=== PATIENT | female | born 1935 | race Caucasian/White ===

== ENCOUNTER 2024-01-27 12:17 | Inpatient (IN) | payer OTHER, SELFPAY ==
[2024-01-27] VITALS (15 sets, daily range): BP systolic 110–185; BP diastolic 48–103; PULSE 82–107; BMI 20.6
--- NOTE | 2024-01-27 09:23 | ED.GENMED ---
History of Present Illness
General
Chief Complaint: Abnormal Lab Value
Source: patient and family (Daughters)
Exam Limitations: none
Time Seen by Provider: 01/27/24 08:55
Nursing documentation reviewed up to this point in time: agreed with
Travel History
Have you had any contact with someone who has COVID-19?: No
Do you have any symptoms of coronavirus? Fever > 100 degrees, chills, cough, shortness of breath, sore throat, loss of taste or smell, muscle aches, or headache?: No
History of Present Illness
History of Present Illness:
88-year-old female with a past medical history of atrial fibrillation on Eliquis, hypertension, pacemaker, SVT, prior GI bleed who presents to the emergency department with her daughters for evaluation of shortness of breath and dizziness�found to
have significant anemia on outpatient lab work. Patient says that she has been feeling very weak and short of breath increasingly over the past 6 to 8 months. She has been trying to get into see her primary doctor for this but was not able to get
in until recently and was sent for blood work which she had drawn yesterday as an outpatient. She was found to have a hemoglobin of 5.7 was referred to the emergency room today. She says she has also been having some dizziness for the same period
of time mostly with positional changes. She has not had any chest pain. She has not had any cough, fevers, chills, edema. She has not noticed any black or bloody stools. She is still taking Eliquis and compliant last dose was last night. She
does have a history of significant anemia in the past�was admitted in 2014 with profound anemia had upper and lower endoscopy which showed no clear bleeding source.
Past History
Past History
ED Past Medical History: Arrthythmia (Atrial fibrillation, SVT), HTN and Other (Anemia, )
ED Past Surgical History: Cardiac (Ablation X 2 , pacemaker), Gynecological (Hysterectomy), Orthopedic (Spinal fussion,) and Other (Hemorrhoidectomy)
Social History
Tobacco: Non-smoker
Alcohol: Occasional
Personal:
Living: alone
Review of Systems
Review of Systems
Constitutional: Reports fatigue; Denies fever or chills
EENT: Denies sore throat or runny nose
Respiratory: Reports trouble breathing; Denies cough
Cardiac: Denies chest pain, diaphoresis or palpitations
ABD/GI: Denies abdominal pain, nausea, vomiting, diarrhea, bloody stools or black stools
: Denies flank pain
Musculoskeletal: Denies neck pain or back pain
Neurological: Reports dizzy; Denies headache, weakness or numbness
Phy Exam
Physical Exam
Physical Exam:
General: Awake, alert, oriented x3; pale and weak.
Head: Normocephalic, atraumatic
Eyes: Pale conjunctiva, pupils equal round and reactive to light bilaterally
Throat: Airway intact, handling secretions
Neck: Trachea midline, supple without meningismus
Lungs: Clear to auscultation bilaterally, no wheezing, rales, rhonchi
Heart: Regular rate and rhythm, no murmurs, gallops, or rubs
Abd: Soft, non distended, nontender
Rectal: Patient unfortunately did not have any stool in the rectal vault for Hemoccult testing no gross blood on rectal either; she does have some external hemorrhoids
Neuro: Cranial nerves grossly intact, speech fluid
Skin: Pale
Extremities: Warm and well-perfused, no edema
Scores
Heart Failure Risk
Heart Failure Risk Score: Not Applicable
Heart Score for Chest Pain Patients
STEMI patient?: Not applicable
Withdrawal Assessment of Alcohol
Withdrawal Assessment Completed?: Not applicable
Course
Orders/Labs/Results
Orders:
Orders
01/27/24 09:34
Type+Screen Urgent
B12 [Vitamin B12] Urgent
Complete Blood Count/With Diff Urgent
Comprehensive Metabolic Panel Urgent
Ferritin Urgent
Iron Urgent
PTT Urgent
Prothrombin Time Urgent
Total Iron Binding Urgent
01/27/24 10:04
Blood Bank Products [* Blood Bank Products] Urgent
Blood Bank Products: *Packed RBC Leuko(PRBC's)
Quantity: 2
Transfuse Today: Yes
Reason: Anemia
Abnormal Lab Results
01/27/24
09:34
WBC 4.2 L 10^3/uL
(4.8-10.8)
RBC 2.92 L 10^6/uL
(4.20-5.40)
Hgb 5.6 L* g/dL
(12.0-16.0)
Hct 19.4 L* %
(37.0-47.0)
MCV 66.4 L fL
(81.0-99.0)
MCH 19.2 L pg
(27.0-31.0)
MCHC 28.9 L g/dL
(33.0-37.0)
RDW 20.4 H %
(11.5-14.5)
Absolute Monos (auto) 0.7 H 10^3/uL
(0.1-0.6)
Monocytes % 15.5 H %
(1.7-9.3)
Eosinophils % 6.7 H %
(0-6)
PT 20.3 H Sec
(11.4-14.6)
APTT 37.5 H Sec
(23.4-35.0)
01/27/24 09:34
Vital Signs
Initial and Last Documented VS:
Initial Vital Signs
Temp Pulse Resp BP Pulse Ox
36.8 C 73 18 121/48 93
01/27/24 08:23 01/27/24 08:23 01/27/24 08:23 01/27/24 08:23 01/27/24 08:23
Last Documented Vital Signs
Temp Pulse Resp BP Pulse Ox
36.8 C 70 23 115/60 93
01/27/24 08:23 01/27/24 10:00 01/27/24 10:00 01/27/24 10:00 01/27/24 08:23
MDM/Problems Addressed
Differential Diagnosis Includes:
Anemia�secondary to GI bleeding versus iron deficiency versus other nutritional deficiencies versus MDS/leukemia
MDM/Problems Addressed:
88-year-old female presents with progressive dyspnea and dizziness positional dizziness over the past 6 to 8 months found to have hemoglobin of 5.7 drawn on outpatient labs yesterday. Vital signs are all normal and in concert with her reported
history of symptoms over 6 to 8 months this suggests that this is a gradual drop in hemoglobin. She is on Eliquis last dose was last night. Her physical exam is as above�while she has no reported GI bleeding unfortunately there was no stool in
rectal vault to test for occult blood. Will plan to place an IV send labs including CBC and CMP, coags, type and screen, iron studies. Consented for blood transfusion; will plan for transfusion pending confirmation of anemia. Will plan likely for
admission for continued evaluation of source of her anemia and serial hemoglobins.
Labs reviewed. CBC confirms anemia with a hemoglobin of 5.6 today, hematocrit 19.4%; she has marginal leukopenia with a WBC of 4.2. Platelets normal. Order placed for 2 units of PRBCs. Considered reversal of anticoagulation but she has not had a
dose since last night, is hemodynamically stable and has had gradual progression of symptoms over a month suggesting that this is a gradual drop rather than an acute drop in hemoglobin. With vitals normal I do not think emergent reversal is
indicated instead we will hold anticoagulation for now. Case discussed with hospitalist for admission for continued evaluation and treatment.
Chronic conditions affecting care:
A-fib on Eliquis which complicates her acute anemia
*Pulse Oximetry
Patient hypoxic: no
*Critical Care Note
Total Time (30-74mins, 75-104mins- exclusive of procedures): Not Applicable
Data Reviewed
Source: patient and family (Daughters)
Patient Management
Discussion with other providers: Hospitalist (Discussed with hospitalist)
Escalation/DeEscalation of care consider admission/obs:
Admission indicated
ED Attending Note
-
Portions of this chart may have been created with voice recognition software.� Occasional wrong word or��sound alike� substitutions may have occurred due to the inherent limitations of voice recognition software.
Discharge Plan
Departure
Patient Disposition: Admit
Date of Disposition: 01/27/24
Time of Disposition: 10:18
Admit to doctor: Mike
Presentation/result/management discussed w/ accepting MD/DO: Hospitalist
Discharge Problem:
Symptomatic anemia
Prescriptions:
No Action
verapamil 120 MG tablet
240 mg PO NOON
sotalol 80 MG tablet
80 mg PO BID
lisinopril 10 MG tablet
20 mg PO DAILY
Eliquis 5 MG tablet
5 mg PO BID
Hold Instructions: Resume on 10/21/22. HOLD post procedure- OK to resume on 10/21 in PM
calcium carbonate-vitamin D3 [Calcium 500 + D (D3)] 500 mg-3.125 mcg (125 unit) Tablet
2 tab PO DAILY
acetaminophen [Tylenol Extra Strength] 500 mg Capsule
1,000 mg PO Q6H PRN (Reason: pain)
Referrals:
Jose Gomez PA-C [Family Provider] -
Interventions
Interventions:
*Risk Screen - Suicide Last Done: 01/27/24 09:26
*General Assessment Last Done: 01/27/24 09:25
*Neglect/Abuse Screening Last Done: 01/27/24 09:26
ED- Fall Risk Assessment Last Done: 01/27/24 09:27
*ED COVID-19 Vaccine History Last Done: 01/27/24 09:25
[2024-01-27 09:58] LABS: % Basophils 0.5 % (0-2); % Eosinophils 6.7 % (0-6); % Immature Granulocytes 0.5 % (0-0.5); % Lymphocytes 29.1 % (20.5-51.1); % Monocytes 15.5 % (1.7-9.3); % Neutrophils 47.7 % (42.2-75.2); Absolute Eosinophils 0.3 10^3/uL (0-0.7); Absolute Lymphocytes 1.2 10^3/uL (1.2-3.4); Absolute Monocytes 0.7 10^3/uL (0.1-0.6); Mean Corp Hgb Conc. 28.9 g/dL (33.0-37.0); Mean Corpuscular Hgb 19.2 pg (27.0-31.0); Mean Corpuscular Volume 66.4 fL (81.0-99.0); Mean Platelet Volume 9.6 fL (7.4-10.4); Nucleated Red Blood Cells % 0 %; Platelet Count 266 10^3/uL (130-400); Red Blood Cell Count 2.92 10^6/uL (4.20-5.40); Red Cell Dist. Width 20.4 % (11.5-14.5); White Blood Cell Count 4.2 10^3/uL (4.8-10.8)
[2024-01-27 10:04] LABS: Hematocrit 19.4 % (37.0-47.0); Hemoglobin 5.6 g/dL (12.0-16.0)
[2024-01-27 10:05] LABS: INR 1.75; PT 20.3 Sec (11.4-14.6)
[2024-01-27 10:06] LABS: APTT 37.5 Sec (23.4-35.0)
[2024-01-27 10:19] LABS: ALT (SGPT) 16 U/L (0-35); AST (SGOT) 24 U/L (14-36); Albumin 3.8 g/dl (3.5-5.0); Alkaline Phosphatase 60 U/L (38-126); Blood Urea Nitrogen 21 mg/dl (7-17); Calcium 9.2 mg/dl (8.4-10.2); Carbon Dioxide 21 mmol/L (22-30); Chloride 109 mmol/L (98-107); Estimated Creatinine Clearance 35 ml/min; Glucose 108 mg/dl (70-99); Iron 24 ug/dl (37-170); Potassium 4.1 mmol/L (3.5-5.1); Sodium 136 mmol/L (135-145); Total Bilirubin 0.5 mg/dl (0.2-1.3); Total Protein 6.5 g/dl (6.3-8.2); eGFR 54.53
[2024-01-27 10:29] LABS: Percent Saturation 5 % (20-50); Total Iron Binding Capacity 450 ug/dl (265-497)
[2024-01-27 10:37] LABS: Microcytosis FEW; Normal RBC Morphology No
[2024-01-27 10:39] LABS: Ovalocytes FEW; Target Cells FEW
[2024-01-27 10:40] LABS: Schistocytes RARE
[2024-01-27 10:43] LABS: Poikilocytosis Slight
[2024-01-27 10:47] LABS: Ferritin 8.2 ng/ml (11.1-264.0)
[2024-01-27 11:02] LABS: Vitamin B12 271 pg/ml (239-931)
--- NOTE | 2024-01-27 12:07 | HPS.HSE ---
Family Physician
-
Family Physician: Jose Gomez PA-C
Chief Complaint
-
Progressive weakness and shortness of breath
History of Present Illness
Patient sent in because of discovery of severe anemia as outpatient.
Patient with history of atrial fibrillation on Eliquis, hypertension, and prior GI bleed for which she had endoscopy /colonoscopy which she thinks 5 to 6 years ago was having increasing shortness of breath and dizziness. She was also feeling weak .
It has been going on for 6 to 8 months. She was trying to get to see PCP and that she did last week or requested blood test and that was drawn yesterday. Hemoglobin was found to be 5.7 and referred to the ER.
She denies noticing any black stools or blood in the stools. No abdominal pain. No nausea vomiting or dysphagia. She did notice weight loss ?quantity.
No chest pain or palpitations.
She is on Eliquis and took her dose last night.
She was admitted 2013 for significant anemia with hemoglobin 5.8. She had a EGD and colonoscopy done which showed no evidence of bleeding.
In 2013 she had rectal bleeding, had a hemorrhoidectomy at [facility].
Medical History
Past Medical History
Past Medical History: Reports Arrhythmia (afib), HTN and Hypercholesterolemia
Past Surgical History: Reports Cardiac (pacer)
Social History
Tobacco: Non-smoker
Alcohol: None
Drug: None
Family History
Family History: Not pertinent
Allergies / Home Medications
Allergies reflects when Allergies were last updated in [employer].
Home Medications with original date entered in [employer]
Allergy/Medication List:
Allergies
Allergy/AdvReac Type Severity Reaction Status Date / Time
NSAIDS (Non-Steroidal Allergy high bp Verified 04/10/23 06:15
Anti-Inflamma
oxycodone Allergy Vomiting Verified 04/10/23 06:15
rofecoxib Allergy high bld Verified 04/10/23 06:15
pressure
zolpidem tartrate Allergy hallucinati Verified 04/10/23 06:15
[From Ambien] ons
zolpidem tartrate Allergy hallucinati Uncoded 04/10/23 06:15
ons
Home Medications
sotalol 80 mg tablet 80 mg PO BID Arrhythmia 08/08/17
apixaban 5 mg tablet (Eliquis) 5 mg PO BID Blood clot prevention/tx 10/01/20
amoxicillin 500 mg capsule 500 mg PO TID 01/27/24
lisinopril 20 mg tablet 20 mg PO DAILY 01/27/24
verapamil 240 mg tablet,extended release 240 mg PO NOON 01/27/24
Review of Systems
-
A 12 point ROS was completed and negative except as noted: Yes
Physical Exam
Vital Signs
Vital Signs
Temp Pulse Resp BP Pulse Ox
98.5 F 70 25 128/65 96
01/27/24 11:56 01/27/24 11:56 01/27/24 11:56 01/27/24 11:56 01/27/24 11:56
Physical Exam
General: No Apparent Distress
HEENT: Moist mucous membranes
Respiratory: Clear
Cardiac: S1/S2 and Regular Rhythm
GI: Soft and No Hepatosplenomegaly
Musculoskeletal: No Edema
Neuro: AO x 3
Psych: Calm; No Confused or Agitated
Laboratory Results
-
01/27/24 09:34
01/27/24 09:34
Laboratory Results
PT 20.3 Sec (11.4-14.6) H 01/27/24 09:34
INR 1.75 01/27/24 09:34
APTT 37.5 Sec (23.4-35.0) H 01/27/24 09:34
Total Bilirubin 0.5 mg/dl (0.2-1.3) 01/27/24 09:34
AST 24 U/L (14-36) 01/27/24 09:34
ALT 16 U/L (0-35) 01/27/24 09:34
Alkaline Phosphatase 60 U/L (38-126) 01/27/24 09:34
Data Reviewed
-
Lab Data: Labs Reviewed by me
Impression/Plan
-
Severe symptomatic anemia with hemoglobin 5.6. No active bleeding. Rectal vault empty so no stools to check for heme testing. No GI symptoms per history. Admit to hospital for further evaluation. Transfuse PRBC 2 units as planned and follow H&H
closely.
Severe iron deficiency anemia-iron stores are pretty low. She is also has severe microcytosis. Patient is on Eliquis. Rule out GI bleed. Consult GI. Start on iron IV.
Atrial fibrillation-clinically in sinus rhythm. Check EKG. Hold Eliquis. Hemodynamically stable. Clinically no signs of heart failure. Continue with sotalol.
Hypertension-continue verapamil and lisinopril for now.
CODE STATUS-DNR/DNI per patient wishes. She apparently has a living will as well stating DNR. Both the daughters at bedside who confirms her wishes.
--- NOTE | 2024-01-27 14:01 | CON.GI ---
Consultation
-
Date/Time Consultation Requested: 01/27/2024
Date/Time Consultation Performed: 01/27/2024
Performing Provider: Thomas Arredondo
Reason for Consultation: anemia
Medical History
Chief Complaint / HPI
Chief Complaint: anemia
History of Present Illness:
The patient is a 8-year-old female with history of A-fib on Eliquis, HTN, and hypercholesterolemia who presents with symptomatic anemia. She had OP blood work which showed Hgb of 5.7 and was directed to ER. She is having symptoms of anemia with
fatigue and exertional dyspnea. She denies overt signs of GI bleeding such as melena, rectal bleeding, or vomiting. She denies NSAID use and denies abdominal pain. Of note she had similar presentation in 2013 when she presented with Hgb of 5.8,
and she had unremarkable EGD/colonoscopy at that time.
Past Medical History
Past Medical History: Arrhythmias, HTN and Hypercholesterolemia
Past Surgical History: Other
Social History
Tobacco: Non-Smoker
Alcohol: None
Family History
Family History: Reviewed & Not Pertinent
Allergies / Home Medications
Allergy/AdvReac Type Severity Reaction Status Date / Time
NSAIDS (Non-Steroidal Allergy high bp Verified 04/10/23 06:15
Anti-Inflamma
oxycodone Allergy Vomiting Verified 04/10/23 06:15
rofecoxib Allergy high bld Verified 04/10/23 06:15
pressure
zolpidem tartrate Allergy hallucinati Verified 04/10/23 06:15
[From Ambien] ons
zolpidem tartrate Allergy hallucinati Uncoded 04/10/23 06:15
ons
Medication Instructions Recorded
sotalol 80 mg tablet 80 mg PO BID Arrhythmia 08/08/17
apixaban 5 mg tablet (Eliquis) 5 mg PO BID Blood clot 10/01/20
prevention/tx
amoxicillin 500 mg capsule 500 mg PO TID 01/27/24
lisinopril 20 mg tablet 20 mg PO DAILY 01/27/24
verapamil 240 mg tablet,extended 240 mg PO NOON 01/27/24
release
Review of Systems
Vital Signs
Temp Pulse Resp BP Pulse Ox
98.7 F 72 22 118/82 94
01/27/24 12:13 01/27/24 13:45 01/27/24 13:45 01/27/24 13:00 01/27/24 13:45
Physical Exam
Exam
General: Well Developed and Well Nourished
HEENT: Normocephalic
Respiratory: Clear
Cardiac: S1/S2
GI: Soft, Non Tender and Non Distended
Results
WBC 4.2 10^3/uL (4.8-10.8) L 01/27/24 09:34
Hgb 5.6 g/dL (12.0-16.0) L* 01/27/24 09:34
Hct 19.4 % (37.0-47.0) L* 01/27/24 09:34
MCV 66.4 fL (81.0-99.0) L 01/27/24 09:34
Plt Count 266 10^3/uL (130-400) 01/27/24 09:34
Absolute Neuts (auto) 2.0 10^3/uL (1.4-6.5) 01/27/24 09:34
PT 20.3 Sec (11.4-14.6) H 01/27/24 09:34
INR 1.75 01/27/24 09:34
APTT 37.5 Sec (23.4-35.0) H 01/27/24 09:34
Sodium 136 mmol/L (135-145) 01/27/24 09:34
Potassium 4.1 mmol/L (3.5-5.1) 01/27/24 09:34
Chloride 109 mmol/L (98-107) H 01/27/24 09:34
Carbon Dioxide 21 mmol/L (22-30) L 01/27/24:34
BUN 21 mg/dl (7-17) H 01/27/24:34
Creatinine 1.0 mg/dL (0.6-1.0) 01/27/24:34
Calcium 9.2 mg/dl (8.4-10.2) 01/27/24:34
Total Bilirubin 0.5 mg/dl (0.2-1.3) 01/27/24:34
AST 24 U/L (14-36) 01/27/24:34
ALT 16 U/L (0-35) 01/27/24:34
Alkaline Phosphatase 60 U/L (38-126) 01/27/24:34
Diagnostic Image Results:
Prior GI Procedures:
EGD:
Colonoscopy:
Assessment / Plan
-
Patient is a 88-year-old female with history of A-fib on Eliquis, HTN, hypercholesterolemia who presents with symptomatic anemia without signs of overt GI bleeding.
Impression / Rec:
1. Anemia - Patient presents with symptomatic anemia with Hgb of 5.6. She denies overt signs of GI bleeding such as melena, rectal bleeding, vomiting, coffee-ground emesis. She denies NSAID use and denies abdominal pain. She had similar
presentation in 2013 when she was admitted with Hgb of 5.8. She underwent EGD/colonoscopy which did not reveal any source of blood loss. She was recommended for capsule endoscopy at [place] due to her pacemaker but this was deferred as her Hgb
remained stable after holding Eliquis. KOBE was done in ER, however Hemoccult could not be performed as there was minimal amount of stool present. Discussed with patient family for possible repeat endo eval, patient did not want to have colonoscopy
and was hesitant for any endo evaluation. Will order FOBT to see whether she has any evidence of GI blood loss. Given her previous negative Endo eval with same presentation, a repeat and evaluation may also be nondiagnostic at this was discussed
with the patient. Will readdress possible other evaluation pending stool test results. Regular diet for now.
Total Time Spent with Patient (in minutes): 55
-
-
Thank you for consultation and allowing me to participate in the patient's care. Please call the hydroelectric station operator GI physician during the after hours with any questions or concerns.
[2024-01-27] MEDS: CALAN EXTENDED RELEASE 240 MG PO (16:40)
--- NOTE | 2024-01-27 19:29 | PTCARENOTE ---
Rec'd pt from the ED, oriented to room and unit, 2nd unit of blood running. Pt call gastelum is within reach, pt instructed to ring for assistance, verbalized understanding, will cont to monitor.
[2024-01-27] MEDS: FERRLECIT 110 MG IV (20:29)
[2024-01-27] MEDS: FLUSH (NSS) 2 FLUSH IV (20:31)
[2024-01-27] MEDS: BETAPACE 80 MG PO (20:31)
[2024-01-27 23:34] LABS: Hematocrit 26.4 % (37.0-47.0)
[2024-01-28] VITALS (8 sets, daily range): BP systolic 136–173; BP diastolic 65–81; PULSE 70–78; O2SAT 96
[2024-01-28 00:08] LABS: Hemoglobin 8.3 g/dL (12.0-16.0)
--- NOTE | 2024-01-28 05:52 | PTCARENOTE ---
Pt. became forgetful and wandered over to [address] to go to the bathroom, bed alarm placed on bed.
[2024-01-28 07:45] LABS: Hematocrit 28.8 % (37.0-47.0); Hemoglobin 8.9 g/dL (12.0-16.0); Mean Corp Hgb Conc. 30.9 g/dL (33.0-37.0); Mean Corpuscular Hgb 22.4 pg (27.0-31.0); Mean Corpuscular Volume 72.5 fL (81.0-99.0); Mean Platelet Volume 9.4 fL (7.4-10.4); Platelet Count 242 10^3/uL (130-400); Red Blood Cell Count 3.97 10^6/uL (4.20-5.40); Red Cell Dist. Width 22.1 % (11.5-14.5)
[2024-01-28 08:01] LABS: Blood Urea Nitrogen 20 mg/dl (7-17); Calcium 9.3 mg/dl (8.4-10.2); Carbon Dioxide 23 mmol/L (22-30); Chloride 111 mmol/L (98-107); Estimated Creatinine Clearance 38 ml/min; Glucose 100 mg/dl (70-99); Potassium 3.9 mmol/L (3.5-5.1); Sodium 138 mmol/L (135-145); eGFR > 60.00
[2024-01-28] MEDS: BETAPACE 80 MG PO ×2 (09:14→19:52)
[2024-01-28] MEDS: ZESTRIL 20 MG PO (09:14)
--- NOTE | 2024-01-28 10:16 | W.PN.HOSP.TC ---
Today's Communication/Plan
-
Heme test stools
Hemolysis panel
PT eval
HH in am
DC planning
Assessment / Plan
Assessment / Plan
Severe symptomatic anemia with hemoglobin 5.6.� No active bleeding.� Rectal vault empty so no stools to check for heme testing.� No GI symptoms per history.�Transfused PRBC 2 units with improved HH. Check hemolysis panel.
Severe iron deficiency anemia-iron stores are pretty low.� She is also has severe microcytosis.� Patient is on Eliquis.� Rule out GI bleed.� Started on iron IV. GI input noted-patient with no active GI bleed and patient is also not inclining
towards endoscopy eval. If heme test stools are negative plan to follow as outpatient.
Atrial fibrillation-clinically in sinus rhythm. Hold Eliquis -resume when active GI bleeding ruled out.� Hemodynamically stable.� Clinically no signs of heart failure.� Continue with sotalol.
Hypertension-continue verapamil and lisinopril for now.
CODE STATUS-DNR/DNI per patient wishes.�
Anticipated Discharge: Within 24 hours
Subjective/Interval History
-
Date of Service: January 28, 2024
Denies shortness of breath at today. No chest pain.
No dizziness.
Complains of insomnia both here and at home.
Objective Data
-
Labs:
Laboratory Results
01/27/24 01/28/24 01/28/24
23:12 07:32 07:38
WBC 6.0
Hgb 8.3 L D 8.9 L Cancelled
Hct 26.4 L 28.8 L Cancelled
Plt Count 242
Sodium 138
Potassium 3.9
Chloride 111 H
Carbon Dioxide 23
BUN 20 H
Creatinine 0.9
Glucose 100 H
Calcium 9.3
Vital Signs:
Vital Signs
Temp Pulse Resp BP Pulse Ox
97.9 F 71 16 158/70 94
01/28/24 07:13 01/28/24 07:13 01/28/24 07:13 01/28/24 09:14 01/28/24 07:38
I&O
01/27/24 01/28/24 01/29/24
05:59 06:59 06:59
Intake Total
Balance
Review of Systems
-
Constitutional: Denies Fever
EENT: Denies Sore Throat
Respiratory: Denies Cough
Abdomen/GI: Denies Abdominal Pain, Nausea, Vomiting or Diarrhea
Neuro: Denies Dizzy
Physical Exam
-
General: No Apparent Distress
HEENT: Moist Mucous Membranes
Respiratory: Clear to Auscultation
Cardiac: Regular Rhythm and S1/S2
GI: Soft and Nontender
Neuro: AO x 3
Data Reviewed
-
Labs: Labs Reviewed by me
[2024-01-28 10:38] LABS: Reticulocyte Count 1.9 % (0.4-2.8)
[2024-01-28 10:49] LABS: LDH 241 U/L (120-246)
[2024-01-28] MEDS: FERRLECIT 110 MG IV (12:33)
[2024-01-28] MEDS: CALAN EXTENDED RELEASE 240 MG PO (12:33)
--- NOTE | 2024-01-28 13:35 | W.PN.GI.CBS2 ---
Today's Communication / Plan
-
f/u with FOBT
Assessment / Plan
-
Patient is a 88-year-old female with history of A-fib on Eliquis, HTN, hypercholesterolemia who presents with symptomatic anemia without signs of overt GI bleeding. Patient presents with symptomatic anemia with Hgb of 5.6. She denies overt signs
of GI bleeding such as melena, rectal bleeding, vomiting, coffee-ground emesis. She denies NSAID use and denies abdominal pain. She had similar presentation in 2013 when she was admitted with Hgb of 5.8. She underwent EGD/colonoscopy which did
not reveal any source of blood loss. She was recommended for capsule endoscopy at [place] due to her pacemaker but this was deferred as her Hgb remained stable after holding Eliquis. KOBE was done in ER, however Hemoccult could not be performed
as there was minimal amount of stool present. Discussed with patient family for possible repeat endo eval, patient did not want to have colonoscopy and was hesitant for any endo evaluation. Will order FOBT to see whether she has any evidence of GI
blood loss. Given her previous negative Endo eval with same presentation, a repeat and evaluation may also be nondiagnostic and this was discussed with the patient.
Hgb up to 8.9 after 2 units of pRBC, appropriate response. Pt reports she had BM this am and was sent for testing. Will follow FOBT to determine next steps as she remains hesitant about endoscopic evaluations.
Total Time Spent with Patient (in minutes): 35
Subjective
Subjective
Date of Service: January 28, 2024
No events.
Objective
Data Reviewed
Laboratory Data:
Laboratory Results
01/28/24 07:38
01/28/24 07:32
Laboratory Results
PT 20.3 Sec (11.4-14.6) H 01/27/24 09:34
INR 1.75 01/27/24 09:34
APTT 37.5 Sec (23.4-35.0) H 01/27/24 09:34
Total Bilirubin 0.5 mg/dl (0.2-1.3) 01/27/24 09:34
AST 24 U/L (14-36) 01/27/24 09:34
ALT 16 U/L (0-35) 01/27/24 09:34
Alkaline Phosphatase 60 U/L (38-126) 01/27/24 09:34
Vital Signs and I&O:
Vital Signs
Temp Pulse Resp BP Pulse Ox
97.8 F 74 18 173/81 97
01/28/24 11:33 01/28/24 11:33 01/28/24 11:33 01/28/24 12:33 01/28/24 11:33
I&O
01/27/24 01/28/24 01/29/24
05:59 06:59 06:59
Intake Total
Balance
--- NOTE | 2024-01-28 14:50 | CM ---
IA completed with pt at bedside.
Pt is an 88yr old female admitted with symptomatic anemia.
At baseline, pt lives alone in an [place] apt at [facility]. Per pt, she has been there just under a year.
Pt has no DME. Pt has used [facility] in the past, but has never been to SNF.
Pt uses [facility] at [facility] and PCP is Jose Gomez
PLAN; dc with no needs anticipated
[2024-01-29 03:30] VITALS: BP 142/87
--- NOTE | 2024-01-29 03:45 | PTCARENOTE ---
Patient placed on 2 L O2 via NC as she was feeling short of Breath . Pulse ox on RA 88%.
--- NOTE | 2024-01-29 03:48 | PTCARENOTE ---
spoke with Tad on the phone gave a small reports to the [facility] , they are in the process of putting in for a bed for this patient. , Patient is to transfer to [place] once a bed is available and the paperwork is completed.
[2024-01-29 06:00] VITALS: BMI 18.6
[2024-01-29 07:05] VITALS: BP 164/81
[2024-01-29 08:24] LABS: Hematocrit 29.3 % (37.0-47.0); Hemoglobin 8.9 g/dL (12.0-16.0); Mean Corp Hgb Conc. 30.4 g/dL (33.0-37.0); Mean Corpuscular Hgb 21.9 pg (27.0-31.0); Mean Platelet Volume 9.5 fL (7.4-10.4); Platelet Count 222 10^3/uL (130-400); Red Blood Cell Count 4.07 10^6/uL (4.20-5.40); Red Cell Dist. Width 22.8 % (11.5-14.5); White Blood Cell Count 5.9 10^3/uL (4.8-10.8)
--- NOTE | 2024-01-29 10:39 | W.PN.GI.CBS2 ---
Addendum entered and electronically signed by Thomas Arredondo MD 01/29/24 18:25:
I saw and examined the patient.
The PA's note was reviewed and I agree with the note.
Comment:
Pt wishes to proceed with endo eval, will plan for EGD/colonoscopy tomorrow.
Addendum entered and electronically signed by SAUL Bone 01/29/24 13:34:
daughter spoke with patient and family would like to proceed with GI work up
Original Note:
Today's Communication / Plan
-
etiology of recurrent anemia unclear
current rectal heme neg but significant Iron deficiency
pt very hesitant to make decision on scopes-- I spoke with Jennifer daughter who will further review with family but discussed options of follow hbg and hold scopes vs proceed with EGD/colon if neg then capsule
change in clears if decides to proceed
Eliquis hold
hbg improved to 8.9 cont to trend
cont IV iron
all questions answered
Assessment / Plan
-
Patient is a 88-year-old female with history of A-fib on Eliquis, HTN, hypercholesterolemia who presents with symptomatic anemia without signs of overt GI bleeding. Patient presents with symptomatic anemia with Hgb of 5.6. She denies overt signs
of GI bleeding such as melena, rectal bleeding, vomiting, coffee-ground emesis. She denies NSAID use and denies abdominal pain. She had similar presentation in 2013 when she was admitted with Hgb of 5.8. She underwent EGD/colonoscopy which did
not reveal any source of blood loss. She was recommended for capsule endoscopy at [place] due to her pacemaker but this was deferred as her Hgb remained stable after holding Eliquis. inital rectal with no stool.
-heme neg iron deficiency microcytic anemia
-afib on Eliquis
-HTN
-hypercholesterolemia
PLAN:
etiology of recurrent anemia unclear
current rectal heme neg but significant Iron deficiency
pt very hesitant to make decision on scopes-- I spoke with Jennifer daughter who will further review with family but discussed options of follow hbg and hold scopes vs proceed with EGD/colon if neg then capsule
change in clears if decides to proceed
Eliquis hold
hbg improved to 8.9 cont to trend
cont IV iron
all questions answered
Subjective
Subjective
Date of Service: January 29, 2024
on regular diet, several stools but unable to get sample
Objective
Data Reviewed
Laboratory Data:
Laboratory Results
01/29/24 08:01
01/28/24 07:32
Laboratory Results
PT 20.3 Sec (11.4-14.6) H 01/27/24 09:34
INR 1.75 01/27/24 09:34
APTT 37.5 Sec (23.4-35.0) H 01/27/24 09:34
Total Bilirubin 0.5 mg/dl (0.2-1.3) 01/27/24 09:34
AST 24 U/L (14-36) 01/27/24 09:34
ALT 16 U/L (0-35) 01/27/24 09:34
Alkaline Phosphatase 60 U/L (38-126) 01/27/24 09:34
Vital Signs and I&O:
Vital Signs
Temp Pulse Resp BP Pulse Ox
97.6 F 72 16 164/81 91
01/29/24 07:05 01/29/24 07:05 01/29/24 07:05 01/29/24 07:05 01/29/24 07:05
I&O
01/28/24 01/29/24 01/30/24
06:59 06:59 06:59
Intake Total 940 / 940
Output Total 200 / 200
Balance 740 / 740
Physical Exam
Physical Exam
HEENT: Anicteric and Moist mucous membranes
Cardiology: Normal Sinus Rhythm
Pulmonary: Clear
GI: Soft and Non Distended
Rectal: Brown and Hem Negative
Extremities: Edema
Neuro: Other (forgetful)
[2024-01-29] MEDS: CALAN EXTENDED RELEASE 240 MG PO (11:26)
[2024-01-29] MEDS: ZESTRIL 20 MG PO (11:28)
[2024-01-29] MEDS: BETAPACE 80 MG PO ×2 (11:32→21:30)
--- NOTE | 2024-01-29 11:48 | W.PN.HOSP.TC ---
Addendum entered and electronically signed by Emma Villatoro MD 01/29/24 16:13:
under weight
Original Note:
Today's Communication/Plan
-
EGD and colonoscopy planned for tomorrow
Assessment / Plan
Assessment / Plan
CVS: S1-S2 normal
Chest: CTA B/L
Abdomen: Soft, NT / Bowel sounds present
Extremities: No edema, normal pulses
BLOCK MECHANIC: Non focal exam
#Severe symptomatic anemia with hemoglobin 5.6.� No active bleeding.�
Rectal vault empty so no stools to check for heme testing.� No GI symptoms per history.�
Transfused PRBC 2 units with improved HH.
H/O Hemorroids
Plan for endoscopy and colonoscopy tomorrow per patient
#Severe iron deficiency anemia-iron stores are pretty low.� She is also has severe microcytosis.�
Patient is on Eliquis.� Rule out GI bleed.�
Started on iron IV.
#Paroxysmal Atrial fibrillation-clinically in sinus rhythm.
H/O Ablations in the past
Hold Eliquis -resume when active GI bleeding ruled out.�
Clinically no signs of heart failure.� Continue with sotalol.
#Pacemaker
#H/O SVT-Verapamil
#Hypertension-continue verapamil and lisinopril for now.
#H/O Spinal Fusion/Chronic back pain/Sciatica/Arthritis
#CODE STATUS-DNR/DNI per patient wishes.�
Anticipated Discharge: Within 24 hours
Subjective/Interval History
-
Date of Service: January 29, 2024
Objective Data
-
Labs:
Laboratory Results
01/29/24
08:01
WBC 5.9
Hgb 8.9 L
Hct 29.3 L
Plt Count 222
Vital Signs:
Vital Signs
Temp Pulse Resp BP Pulse Ox
97.6 F 72 16 164/81 91
01/29/24 07:05 01/29/24 07:05 01/29/24 07:05 01/29/24 07:05 01/29/24 07:05
I&O
01/28/24 01/29/24 01/30/24
06:59 06:59 06:59
Intake Total 940 / 940
Output Total 200 / 200
Balance 740 / 740
[2024-01-29 13:14] VITALS: BP 155/74; BP 156/77; BP 157/76; PULSE 72; PULSE 73
[2024-01-29] MEDS: FERRLECIT 110 MG IV (14:37)
[2024-01-29] MEDS: DULCOLAX 10 MG PO (14:41)
[2024-01-29] MEDS: FLUSH (NSS) 1 FLUSH IV (14:42)
[2024-01-29] MEDS: VITAMIN B-12 PO (14:42)
--- NOTE | 2024-01-29 14:46 | PN.CDI ---
CDI
- -
CDI:
Physician Documentation Request
Admit Date: 01/27/24 12:17
Dear Doctor Shauna,
Please review the following and provide your response in the progress notes.
Clinical Indicators:
Height: 5'5
Weight: 112lbs
BMI: 18.6
Other Clinical Notes: Tip Cementer 'underweight'
If possible, please provide an associated diagnosis related to the abnormal BMI, such as:
Underweight
Cachectic
BMI is not significant
Other
Use of terms such as suspected, likely, concern for, or probable (associated with a specific diagnosis that is being evaluated, monitored, or treated as if it exists) are acceptable and can be coded in the inpatient setting, when documented at the
time of discharge.
Thank you,
Ritika Negrete RN
CDI Specialist
Please use your independent medical judgment in providing your response.
[2024-01-29 15:05] VITALS: BP 165/71
[2024-01-29] MEDS: NULYTELY SOLUTION 4 LITERS PO (18:30)
[2024-01-29] MEDS: VITAMIN B-12 1000 MCG PO (18:30)
[2024-01-29 19:18] VITALS: BP 147/72
[2024-01-29 22:24] LABS: Haptoglobin 81 mg/dL (30-200)
[2024-01-29 23:25] VITALS: BP 162/86
[2024-01-30] VITALS (10 sets, daily range): BP systolic 12–174; BP diastolic 56–93
--- NOTE | 2024-01-30 04:10 | PTCARENOTE ---
pt found walking in the hallway. States she was looking for a different bathroom. Assisted pt back to her room. She is oriented but hasn't slept as she has been doing her colonoscopy. She is tearful and states she should never have agreed to have
this done. Emotional support provided. Call [facility] is in reach and pt was instructed to call if she needs assistance.
[2024-01-30 07:40] LABS: Hematocrit 29.6 % (37.0-47.0); Mean Corp Hgb Conc. 30.4 g/dL (33.0-37.0); Mean Corpuscular Hgb 22.4 pg (27.0-31.0); Mean Corpuscular Volume 73.6 fL (81.0-99.0); Mean Platelet Volume 10.1 fL (7.4-10.4); Platelet Count 246 10^3/uL (130-400); Red Blood Cell Count 4.02 10^6/uL (4.20-5.40); Red Cell Dist. Width 23.5 % (11.5-14.5); White Blood Cell Count 6.5 10^3/uL (4.8-10.8)
[2024-01-30 07:44] LABS: INR 1.26; PT 15.6 Sec (11.4-14.6)
[2024-01-30 08:02] LABS: Blood Urea Nitrogen 18 mg/dl (7-17); Calcium 9.7 mg/dl (8.4-10.2); Carbon Dioxide 23 mmol/L (22-30); Chloride 106 mmol/L (98-107); Estimated Creatinine Clearance 40 ml/min; Glucose 89 mg/dl (70-99); Potassium 3.8 mmol/L (3.5-5.1); Sodium 139 mmol/L (135-145); eGFR > 60.00
[2024-01-30] MEDS: BETAPACE 80 MG PO ×2 (10:07→21:05)
[2024-01-30] MEDS: ZESTRIL 20 MG PO (10:07)
[2024-01-30] MEDS: FERRLECIT 110 MG IV (14:02)
[2024-01-30] MEDS: CALAN EXTENDED RELEASE 240 MG PO (14:02)
[2024-01-30] MEDS: VITAMIN B-12 1000 MCG PO (14:02)
--- NOTE | 2024-01-30 16:09 | W.PN.HOSP.TC ---
Today's Communication/Plan
-
Rpt Hb in am
If stable start Eliquis
Possible discharge in am
Assessment / Plan
Assessment / Plan
CVS: S1-S2 normal
Chest: CTA B/L
Abdomen: Soft, NT / Bowel sounds present
Extremities: No edema, normal pulses
INTERN BRAND: Non focal exam
#Severe symptomatic anemia with hemoglobin 5.6.� No active bleeding.�
Rectal vault empty so no stools to check for heme testing.� No GI symptoms per history.�
Transfused PRBC 2 units with improved HH.
EGD 01/30/[id number] healed ulcer in the antrum biopsied, 3 cm hiatal hernia
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
Restart Eliquis tomorrow per discussion with GI
Hemoglobin to be repeated in the morning
#Severe iron deficiency anemia-iron stores are pretty low.� She is also has severe microcytosis.�
Started on iron IV.
Replace low normal B12
#Paroxysmal Atrial fibrillation-clinically in sinus rhythm.
H/O Ablations in the past
Hold Eliquis -resume tomorrow per GI
Clinically no signs of heart failure.� Continue with sotalol.
#Pacemaker
#H/O SVT-Verapamil
#Hypertension-continue verapamil and lisinopril for now.
#H/O Spinal Fusion/Chronic back pain/Sciatica/Arthritis
#CODE STATUS-DNR/DNI per patient wishes.�
Spoke to daughter Jennifer and updated.
Anticipated Discharge: Within 24 hours
Subjective/Interval History
-
Date of Service: January 30, 2024
Objective Data
-
Labs:
Laboratory Results
01/30/24
06:47
WBC 6.5
Hgb 9.0 L
Hct 29.6 L
Plt Count 246
PT 15.6 H
INR 1.26
Sodium 139
Potassium 3.8
Chloride 106
Carbon Dioxide 23
BUN 18 H
Creatinine 0.8
Glucose 89
Calcium 9.7
Vital Signs:
Vital Signs
Temp Pulse Resp BP Pulse Ox
97.5 F 73 16 160/78 97
01/30/24 15:00 01/30/24 15:00 01/30/24 15:00 01/30/24 15:00 01/30/24 15:00
I&O
01/29/24 01/30/24 01/31/24
06:59 06:59 06:59
Intake Total 940 / 940 710 / 710
Output Total 200 / 200 250 / 250
Balance 740 / 740 460 / 460
[2024-01-31 03:13] VITALS: BP 120/68
[2024-01-31 07:00] VITALS: BP 163/67
[2024-01-31] MEDS: ZESTRIL 20 MG PO (08:05)
[2024-01-31] MEDS: BETAPACE 80 MG PO (08:05)
[2024-01-31] MEDS: VITAMIN B-12 1000 MCG PO (08:05)
[2024-01-31 08:18] LABS: Hematocrit 29.8 % (37.0-47.0); Hemoglobin 8.8 g/dL (12.0-16.0); Mean Corp Hgb Conc. 29.5 g/dL (33.0-37.0); Mean Corpuscular Hgb 22.2 pg (27.0-31.0); Mean Corpuscular Volume 75.3 fL (81.0-99.0); Mean Platelet Volume 9.7 fL (7.4-10.4); Platelet Count 224 10^3/uL (130-400); Red Blood Cell Count 3.96 10^6/uL (4.20-5.40); Red Cell Dist. Width 24.5 % (11.5-14.5); White Blood Cell Count 5.7 10^3/uL (4.8-10.8)
--- NOTE | 2024-01-31 11:08 | W.PN.GI.CBS2 ---
Addendum entered and electronically signed by Idania Gasca DO 01/31/24 16:48:
Patient seen and examined independently of ASSISTANT PROFESSOR OF CHEMISTRY. I agree with her note with my additions below
On repeat hemoglobin has been stable with no overt bleeding. Restart Eliquis, if no overt bleeding okay for discharge.
Her endoscopy was unrevealing and her colonoscopy revealed angioectasias in the cecum and proximal ascending colon treated with APC and clips were placed.
Patient should have a repeat CBC in 1 week and return if has any further rectal bleeding. Can follow-up with PCP
Original Note:
Today's Communication / Plan
-
Repeat H&H. Diet as tolerated. If stable likely okay from GI standpoint for discharge with repeat CBC in 1 week. Resume Eliquis if stable hemoglobin. Can follow-up outpatient in 4 to 6 weeks. No further GI recommendations, will sign off.
Please call back with questions or concerns.
Assessment / Plan
-
The patient is a 88-year-old female with history of A-fib on Eliquis, HTN, hypercholesterolemia who presents with symptomatic anemia without signs of overt GI bleeding. Patient presents with symptomatic anemia with Hgb of 5.6. She denies overt
signs of GI bleeding such as melena, rectal bleeding, vomiting, coffee-ground emesis. She denies NSAID use and denies abdominal pain. She had similar presentation in 2013 when she was admitted with Hgb of 5.8. She underwent EGD/colonoscopy which
did not reveal any source of blood loss. She was recommended for capsule endoscopy at [place] due to her pacemaker but this was deferred as her Hgb remained stable after holding Eliquis. initial rectal with no stool.
Problem list:
-heme neg iron deficiency microcytic anemia
-afib on Eliquis
-HTN
-hypercholesterolemia
01/29/2024 colonoscopy: Hemorrhoids found on perianal exam. Erythematous mucosa in the rectum. Diverticulosis in the sigmoid colon. 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
Treated with argon plasma coagulation (APC). 3 Clips were placed on one angioectasia for marking, then for hemostasis. Clip zinc skimmer: [employer]. No specimens collected.
01/29/2024 EGD: No significant findings, however, a scar - possibly a healed ulcer in the antrum. Biopsied. 3 cm hiatal hernia. No gross lesions in the entire esophagus. Scar in the gastric antrum. Biopsied Normal examined duodenum.
Recommendations:
-Etiology of recurrent anemia likely secondary to colonic angioectasias which were seen on colonoscopy which were treated with APC and clipping for hemostasis.
-Hemoglobin is stable. Would repeat early this afternoon and if remains stable without signs of bleeding can resume Eliquis
-Diet as tolerated
-Repeat CBC in 1 week
-If stable today likely can be discharged from GI standpoint
-IV iron as ordered
-Can follow-up as outpatient in 4 to 6 weeks. If recurrent significant anemia or bleeding will need to review ongoing use of Eliquis with her grab setter.
Subjective
Subjective
Date of Service: January 31, 2024
The patient was seen and examined at the bedside. Her hemoglobin this morning is 8.8 which is stable. She has had no signs of bleeding. She is tolerating her diet.
Objective
Data Reviewed
Laboratory Data:
Laboratory Results
01/31/24 07:52
01/30/24 06:47
Laboratory Results
PT 15.6 Sec (11.4-14.6) H 01/30/24 06:47
INR 1.26 01/30/24 06:47
APTT 37.5 Sec (23.4-35.0) H 01/27/24 09:34
Total Bilirubin 0.5 mg/dl (0.2-1.3) 01/27/24 09:34
AST 24 U/L (14-36) 01/27/24 09:34
ALT 16 U/L (0-35) 01/27/24 09:34
Alkaline Phosphatase 60 U/L (38-126) 01/27/24 09:34
Vital Signs and I&O:
Vital Signs
Temp Pulse Resp BP Pulse Ox
97.9 F 54 18 163/67 96
01/31/24 07:00 01/31/24 07:00 01/31/24 07:00 01/31/24 07:00 01/31/24 07:00
I&O
01/30/24 01/31/24 02/01/24
06:59 06:59 06:59
Intake Total 710 / 710
Output Total 250 / 250
Balance 460 / 460
Physical Exam
Physical Exam
HEENT: Anicteric
Cardiology: S1 and S2 (Regular rate/rhythm)
Pulmonary: Clear
GI: Soft, Non Distended, Non Tender and Normal Bowel Sounds
[2024-01-31] MEDS: CALAN EXTENDED RELEASE 240 MG PO (11:19)
[2024-01-31 12:00] VITALS: BP 189/77
[2024-01-31] MEDS: FERRLECIT 110 MG IV (13:20)
--- NOTE | 2024-01-31 13:32 | W.PN.HOSP.TC ---
Addendum entered and electronically signed by Emma Villatoro MD 01/31/24 16:07:
Repeat hemoglobin reviewed. Reviewed with patient and also with Dr. Walp. Chauhan for discharge.
Discussed the patient regarding avoiding constipation. She has history of constipation MiraLAX discussed.
Also discussed about supplements with iron, B12
Prescription given for CBC as outpatient
Discharge time 31 minutes
Original Note:
Today's Communication/Plan
-
Rpt Hb today.
If stable start Eliquis and discharge
Assessment / Plan
Assessment / Plan
CVS: S1-S2 normal
Chest: CTA B/L
Abdomen: Soft, NT / Bowel sounds present
Extremities: No edema, normal pulses
RADIOGRAPHER ANGIOGRAM: Non focal exam
#Severe symptomatic anemia with hemoglobin 5.6.� No active bleeding.�
Rectal vault empty so no stools to check for heme testing.� No GI symptoms per history.�
Transfused PRBC 2 units with improved HH.
EGD 01/30/[id number] healed ulcer in the antrum biopsied, 3 cm hiatal hernia
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
Restart Eliquis if repeat Hb is stable.
#Severe iron deficiency anemia-iron stores are pretty low.� She is also has severe microcytosis.�
Started on iron IV.
Replace low normal B12
#Paroxysmal Atrial fibrillation-clinically in sinus rhythm.
H/O Ablations in the past
Eliquis as above
Clinically no signs of heart failure.� Continue with sotalol.
#Pacemaker
#H/O SVT-Verapamil
#Hypertension-continue verapamil and lisinopril for now.
#H/O Spinal Fusion/Chronic back pain/Sciatica/Arthritis
#CODE STATUS-DNR/DNI per patient wishes.�
Spoke to daughter Jennifer and updated 01/30/24
Anticipated Discharge: Today
Subjective/Interval History
-
Date of Service: January 31, 2024
Objective Data
-
Labs:
Laboratory Results
01/31/24 01/31/24
07:52 13:28
WBC 5.7
Hgb 8.8 L Pending
Hct 29.8 L Pending
Plt Count 224
Vital Signs:
Vital Signs
Temp Pulse Resp BP Pulse Ox
97.4 F 76 20 189/77 99
01/31/24 12:00 01/31/24 12:00 01/31/24 12:00 01/31/24 12:00 01/31/24 12:00
I&O
01/30/24 01/31/24 02/01/24
06:59 06:59 06:59
Intake Total 710 / 710
Output Total 250 / 250
Balance 460 / 460
[2024-01-31 13:47] LABS: Hematocrit 30.6 % (37.0-47.0)
--- NOTE | 2024-01-31 14:31 | CM ---
Patient seen. IMM reviewed, signed, placed in patients chart. Patient reports her daughter will provide her transportation home. CM will continue to follow for discharge planning needs.
Plan; return to [place].
--- NOTE | 2024-01-31 16:07 | W.DS.TRANS ---
Addendum entered and electronically signed by Emma Villatoro MD 01/31/24 17:34:
Dictation- [id number]
Original Note:
DC Summary - [employer]
-
Discharge Instructions:
Discharge Diagnosis/Procedures Severe Symptomatic Anemia, Hemorrhoids,
Diverticulosis, Colonic angioectasis, Afib,
Pacemaker, Hypertension
Diet As tolerated
Activity As tolerated
Driving Restrictions As prior to admission
Blood Work CBC per script
Instructions:
Stand-Alone Forms:
Changes to Home Medications: Yes
Discharge Medications:
DC Medications w/original date entered in [employer]
sotalol 80 mg tablet 80 mg PO BID Arrhythmia 08/08/17
apixaban 5 mg tablet (Eliquis) 5 mg PO BID Blood clot prevention/tx 10/01/20
cyanocobalamin (vitamin B-12) 1,000 mcg tablet 1,000 mcg PO DAILY Supplement #0 tabs 01/31/24
ferrous sulfate 325 mg (65 mg iron) tablet,delayed release 325 mg PO Q OTHER DAY anemia #30 tabs 01/31/24
lisinopril 20 mg tablet 20 mg PO DAILY Blood pressure #0 tabs 01/31/24
polyethylene glycol 3350 17 gram oral powder packet (Miralax) 17 g PO DAILY Constipation #30 ea 01/31/24
verapamil 240 mg tablet,extended release 240 mg PO NOON Arrhythmia #0 tabs 01/31/24
Home Medication Changes
new
cyanocobalamin (vitamin B-12) 1,000 mcg tablet 1,000 mcg PO DAILY Supplement #0 tabs 01/31/24
ferrous sulfate 325 mg (65 mg iron) tablet,delayed release 325 mg PO Q OTHER DAY anemia #30 tabs 01/31/24
polyethylene glycol 3350 17 gram oral powder packet (Miralax) 17 g PO DAILY Constipation #30 ea 01/31/24
Pending Results: No
== END 2024-01-31 16:56 | disposition home or self-care (01) | DRG 394 ==
LOC: 4 WEST ACU 12:17
PROVIDERS: Internal Medicine; Nurse Practitioner Adult Health; Nurse Practitioner Family; ADMITTING PHYSICIAN Internal Medicine; ATTENDING PHYSICIAN Hospitalist; CONSULT PHYSICIAN Internal Medicine Gastroenterology; EMERGENCY PHYSICIAN Emergency Medicine; FAMILY PHYSICIAN Physician Assistant Medical
PROC: 30233N1 Transfusion of Nonautologous Red Blood Cells into Peripheral Vein, Percutaneous Approach (ICD-10-PCS; 2024-01-27)
PROC: 0DB68ZX Excision of Stomach, Via Natural or Artificial Opening Endoscopic, Diagnostic (ICD-10-PCS; 2024-01-30)
PROC: 0W3P8ZZ Control Bleeding in Gastrointestinal Tract, Via Natural or Artificial Opening Endoscopic (ICD-10-PCS; 2024-01-30)
DX: K55.20 Angiodysplasia of colon without hemorrhage (principal); D62 Acute posthemorrhagic anemia; Z68.1 Body mass index [BMI] 19.9 or less, adult; I48.91 Unspecified atrial fibrillation; K57.30 Diverticulosis of large intestine without perforation or abscess without bleeding; K64.9 Unspecified hemorrhoids; K44.9 Diaphragmatic hernia without obstruction or gangrene; I10 Essential (primary) hypertension; I48.0 Paroxysmal atrial fibrillation; E78.00 Pure hypercholesterolemia, unspecified; Z66 Do not resuscitate; Z87.11 Personal history of peptic ulcer disease; Z79.01 Long term (current) use of anticoagulants
CPT/HCPCS: 88305; 36430; 80048; 80053; 82607; 82728; 83010; 83540; 83550; 83615; 85014; 85018; 85025; 85027; 85045; 85610; 85730; 86850; 86900; 86901; 86920; 88342; 97162; 99285; J2916; P9016

== ENCOUNTER 2024-02-07 19:02 | Inpatient (IN) | payer OTHER, SELFPAY ==
[2024-02-07] VITALS (16 sets, daily range): BP systolic 97–169; BP diastolic 46–98; BMI 20.7; BMI 19.5
[2024-02-07 15:24] LABS: % Basophils 0.3 % (0-2); % Immature Granulocytes 0.6 % (0-0.5); % Monocytes 0.8 % (1.7-9.3); % Neutrophils 95.3 % (42.2-75.2); Absolute Immature Granulocytes 0.1 10^3/uL (0-0.05); Absolute Lymphocytes 0.3 10^3/uL (1.2-3.4); Absolute Monocytes 0.1 10^3/uL (0.1-0.6); Absolute Neutrophils 10.3 10^3/uL (1.4-6.5); Hematocrit 29.3 % (37.0-47.0); Hemoglobin 9.2 g/dL (12.0-16.0); Mean Corp Hgb Conc. 31.4 g/dL (33.0-37.0); Mean Corpuscular Hgb 24.9 pg (27.0-31.0); Mean Corpuscular Volume 79.2 fL (81.0-99.0); Nucleated Red Blood Cells % 0 %; Red Cell Dist. Width 30.1 % (11.5-14.5); White Blood Cell Count 10.8 10^3/uL (4.8-10.8)
[2024-02-07 15:26] LABS: INR 2.17; PT 24.4 Sec (11.4-14.6)
[2024-02-07 15:39] LABS: ALT (SGPT) 22 U/L (0-35); AST (SGOT) 41 U/L (14-36); Albumin 3.5 g/dl (3.5-5.0); Alkaline Phosphatase 74 U/L (38-126); Blood Urea Nitrogen 28 mg/dl (7-17); Calcium 9.1 mg/dl (8.4-10.2); Carbon Dioxide 21 mmol/L (22-30); Chloride 104 mmol/L (98-107); Glucose 110 mg/dl (70-99); Potassium 3.3 mmol/L (3.5-5.1); Sodium 135 mmol/L (135-145); Total Bilirubin 0.9 mg/dl (0.2-1.3); Total Protein 6.2 g/dl (6.3-8.2); eGFR 28.84
[2024-02-07] MEDS: NSS 250 IV (16:01)
[2024-02-07] MEDS: OFIRMEV 100 IV (16:02)
[2024-02-07 16:06] LABS: Mean Platelet Volume 10.2 fL (7.4-10.4); Platelet Count 130 10^3/uL (130-400)
[2024-02-07 16:07] LABS: Anisocytosis 1+; Macrocytosis 1+; Normal RBC Morphology No; Ovalocytes Slight
[2024-02-07 16:08] LABS: Microcytosis 1+
[2024-02-07 16:50] LABS: Urine Albumin 2+ (Neg - Trace); Urine Bilirubin Negative (Negative); Urine Character Slightly Cloudy (Clear); Urine Color Yellow; Urine Glucose Negative (Negative); Urine Ketone Trace (Negative); Urine Leukocyte 2+ (Negative); Urine Nitrite Positive (Negative); Urine Occult Blood 4+ (Negative); Urine Specific Gravity 1.015 (<1.030); Urine Urobilinogen Negative (Neg - 1+)
[2024-02-07 16:56] LABS: COVID-19 Antigen Negative (Negative); Lactic Acid 4.8 mmol/L (0.7-2.0)
[2024-02-07 17:09] LABS: Urine Squamous Cell 0-2 /LPF (Few)
[2024-02-07 17:10] LABS: Urine Bacteria Many (Negative); Urine Red Blood Cell 30-40 /HPF (0-2); Urine White Cell >100 /HPF (0-5)
--- NOTE | 2024-02-07 17:54 | ED.GENMED ---
History of Present Illness
General
Chief Complaint: Fever
Source: patient
Exam Limitations: none
Time Seen by Provider: 02/07/24 15:55
Nursing documentation reviewed up to this point in time: agreed with
Travel History
Have you had any contact with someone who has COVID-19?: No
Do you have any symptoms of coronavirus? Fever > 100 degrees, chills, cough, shortness of breath, sore throat, loss of taste or smell, muscle aches, or headache?: No
History of Present Illness
History of Present Illness:
Patient discharged from the hospital 5 days ago after being treated for GI bleed, presents to ED secondary to chills sensation along with generalized weakness. Upon arrival, patient found to be febrile with rigors, with she was not aware of.
Patient does report 3-day history of continual nonbloody diarrhea. Denies coughing. Denies vomiting. However, patient does report nausea sensation with decreased appetite. Denies difficulty with urination or urinary frequency. Denies coughing.
Past History
Past History
ED Past Medical History: Arrthythmia (Atrial fibrillation, SVT), HTN and Other (Anemia, )
ED Past Surgical History: Cardiac (Ablation X 2 , pacemaker), Gynecological (Hysterectomy), Orthopedic (Spinal fussion,) and Other (Hemorrhoidectomy)
Social History
Tobacco: Non-smoker
Alcohol: Occasional
Personal:
Living: alone
Review of Systems
Review of Systems
Allergies reviewed?: Yes
All Other Systems: ROS reviewed and negative except as documented in HPI and ROS
Constitutional: Reports chills
EENT: Reports no symptoms
Respiratory: Reports no symptoms; Denies cough or trouble breathing
Cardiac: Reports no symptoms
ABD/GI: Reports nausea and diarrhea; Denies vomiting
: Reports no symptoms
Musculoskeletal: Reports no symptoms
Skin: Reports no symptoms
Neurological: Reports weakness
Phy Exam
Physical Exam
Physical Exam:
Physical Exam
General: no apparent distress, not acutely ill. febrile. tachycardic.
Head: nc/at. eomi
Neck: supple. no meningeal signs.
Heart: tachycardic, no murmur. equal radial pulses.
Lungs: no acute respiratory distress. clear bilaterally
Abdomen: normal bowel sounds. not tender.
Neuro: alert and oriented. no focal neurological deficits
Skin: no rash
Psychiatric: well kept. interactive and cooperative
Extremities: no edema. no calf tenderness.
Course
Orders/Labs/Results
Orders:
Orders
02/07/24 Dinner
NPO
Allow oral meds: Yes
Allow clear liquids: Sips of Clears
02/07/24 15:09
Type+Screen Urgent
Complete Blood Count/With Diff Urgent
Comprehensive Metabolic Panel Urgent
PT/INR [Prothrombin Time] Urgent
02/07/24 15:56
Acetaminophen 1000MG/100Ml [Ofirmev] 1,000 mg in 100 ml IV ONCE
Acetaminophen IV Indication:: ED Narcotic Naive Pt-ONCE
02/07/24 15:57
0.9% Sodium Chloride 250 ml [Nss] 250 ml IV BOLUS
02/07/24 16:21
Electrocardiogram (*1) Urgent
Reason for Study: Other
Other Reason for Exam: Possible Sepsis
Cardiac Monitoring- Treatment ONCE
IV Insert/Care/Rem.- Treatment PRN
Straight cath- Treatment ONCE
O2 Therapy [RESP] Urgent
Titrate/Wean O2 to maintain O2 sat greater than (%): 93
Special Instructions: TO MAINTAIN CONTINUOUS O2 SATS > OR = 93%
Pulse Ox/cont/shift [RESP] Urgent
Quantity: 1
Special Instructions: CONTINUOUS
02/07/24 16:24
COVID-19 Antigen Urgent
Source: Nasal Swab
Lactic Acid Q4H
Comment: ON ICE, CANCEL 2ND ORDER IF FIRST LACTIC ACID LEVEL <2
Urinalysis Reflex To Culture Urgent
Date Specimen was Collected: 02/07/24
Time Specimen was Collected: 16:21
Urine Microscopic Reflex Cult Urgent
Blood Culture Q30M
SEN Source: Blood/Venous
Specimen Description:
Comment: FROM 2 SEPARATE SITES
Blood Culture Q30M
SEN Source: Blood/Venous
Specimen Description:
Comment: FROM 2 SEPARATE SITES
Influenza A+B Rapid Molecular Urgent
SEN Source: Nasal Swab
Specimen Description:
Urine Culture Urgent
SEN Source: U
Specimen Description:
Date Specimen was Collected: 02/07/24
Time Specimen was Collected: 16:21
02/07/24 17:20
Norovirus by PCR Urgent
SEN Source: Feces/Stool
Specimen Description:
Date Specimen was Collected: 02/07/24
Time Specimen was Collected: 17:19
STOOL [C difficile Antigen & Toxins] Urgent
SEN Source: Feces/Stool
Specimen Description:
Date Specimen was Collected: 02/07/24
Time Specimen was Collected: 17:19
Stool Culture Urgent
SEN Source: Feces/Stool
Specimen Description:
Date Specimen was Collected: 02/07/24
Time Specimen was Collected: 17:19
02/07/24 17:57
CefTRIAXone [Rocephin] 1,000 mg .ROUTE .STK-MED ONE
Sterile Water [Sterile Water For Injection] 10 ml .ROUTE .STK-MED ONE
02/07/24 17:58
0.9% Sodium Chloride 1000 ml [Nss] 1,000 ml IV BOLUS
CefTRIAXone [Rocephin] 1,000 mg IV NOW STA
02/07/24 18:27
Admit/Transfer Patient As Directed
Co-Sign Provider:
Level of Care: Inpatient admission
Assign to:: Telemetry
Physician / Group: jaziel
Diagnosis: diarrhea, uti
Reason for Telemetry: Arrhythmia
Date to Stop Telemetry: 02/10/24
Time to Stop Telemetry: 11:00
Reason for Hospitalization: diarrhea, uti
Expected length of stay greater than two midnights?: Yes
ELOS- Estimated Length of Stay in days: 2
I certify the patient meets the requirements for IP care: Yes
02/07/24 18:28
Code Status As Directed
Resuscitation Status: Do not resuscitate
Reached after discussion with pt or family/Healthcare POA: Yes
DNR Bracelet Application ONCE
02/07/24 18:30
Potassium Chloride [KCl] 40 meq 0.9% Sodium Chloride 250 ml [Nss] 250 ml IV NOW
02/07/24 20:07
0.9% Sodium Chloride 1000 ml [Nss] 1,000 ml IV 80 mls/hr
Acetaminophen [Tylenol] 1,000 mg PO DAILYPRN PRN
Apixaban [Eliquis] 5 mg PO BID
Ondansetron Injectable [Zofran] 4 mg IV Q6HPRN PRN
Piperacillin/Tazo 2.25 Gram [Zosyn] 2.25 grams in 50 ml IV Q6H
Sotalol [Betapace] 80 mg PO BID
02/07/24 20:07
VTE Contraindication Routine
VTE Mechanical Device Contraindication: Medical Contraindication
Pharmocologic Contraindication: Medical Contraindication
Activity As Directed
Activity Level: As Tolerated
Vital Signs As Directed
Frequency: Per unit guidelines
02/07/24 20:20
Lactate Level [Lactic Acid] Q6H
02/07/24 20:30
Lactic Acid Q4H
Comment: ON ICE, CANCEL 2ND ORDER IF FIRST LACTIC ACID LEVEL <2
02/08/24 06:00
Complete Blood Count/With Diff IN AM
Comprehensive Metabolic Panel IN AM
02/08/24 08:00
Cyanocobalamin [Vitamin B-12] 1,000 mcg PO DAILY
ferrous sulfate 325 mg PO Q48H@0800
02/08/24 12:00
Verapamil Extended Release [Calan Extended Release] 240 mg PO NOON
02/10/24 11:00
DC Protocol for Telemetry ONCE
Abnormal Lab Results
02/07/24 02/07/24
15:09 16:24
RBC 3.70 L 10^6/uL
(4.20-5.40)
Hgb 9.2 L g/dL
(12.0-16.0)
Hct 29.3 L %
(37.0-47.0)
MCV 79.2 L fL
(81.0-99.0)
MCH 24.9 L pg
(27.0-31.0)
MCHC 31.4 L g/dL
(33.0-37.0)
RDW 30.1 H %
(11.5-14.5)
Abs Immat Gran (auto) 0.1 H 10^3/uL
(0-0.05)
Absolute Neuts (auto) 10.3 H 10^3/uL
(1.4-6.5)
Absolute Lymphs (auto) 0.3 L 10^3/uL
(1.2-3.4)
Immature Gran % 0.6 H %
(0-0.5)
Neutrophils % 95.3 H %
(42.2-75.2)
Lymphocytes % 3.0 L %
(20.5-51.1)
Monocytes % 0.8 L %
(1.7-9.3)
PT 24.4 H Sec
(11.4-14.6)
Potassium 3.3 L mmol/L
(3.5-5.1)
Carbon Dioxide 21 L mmol/L
(22-30)
BUN 28 H mg/dl
(7-17)
Creatinine 1.7 H mg/dL
(0.6-1.0)
Glucose 110 H mg/dl
(70-99)
Lactic Acid 4.8 H* mmol/L
(0.7-2.0)
AST 41 H U/L
(14-36)
Total Protein 6.2 L g/dl
(6.3-8.2)
Urine Ketones Trace A
(Negative)
Ur Occult Blood Reflex 4+ A
(Negative)
Urine Nitrite (Reflex) Positive A
(Negative)
Leukocyte Esterase Rfl 2+ A
(Negative)
Urine RBC 30-40 A /HPF
(0-2)
Urine WBC (Reflex) >100 A /HPF
(0-5)
Urine Bacteria (Reflex) Many A
(Negative)
Urine Albumin (Reflex) 2+ A
(Neg - Trace)
02/07/24 15:09
02/07/24 15:09
Vital Signs
Initial and Last Documented VS:
Initial Vital Signs
Temp Pulse Resp BP Pulse Ox
98.7 F 112 16 123/75 98
02/07/24 15:03 02/07/24 15:03 02/07/24 15:03 02/07/24 15:03 02/07/24 15:03
Last Documented Vital Signs
Temp Pulse Resp BP Pulse Ox
98.2 F 99 16 121/62 95
02/07/24 20:21 02/07/24 20:21 02/07/24 20:21 02/07/24 20:21 02/07/24 20:21
MDM/Problems Addressed
MDM/Problems Addressed:
History and exam consistent with sepsis, likely secondary to UTI along with diarrhea. Patient will be admitted for IV fluids and IV antibiotics.
Stool culture and blood culture pending. Urine culture pending.
ARF, likely prerenal from ongoing diarrhea.
*Critical Care Note
Total Time (30-74mins, 75-104mins- exclusive of procedures): Not Applicable
ED Attending Note
-
Portions of this chart may have been created with voice recognition software.� Occasional wrong word or��sound alike� substitutions may have occurred due to the inherent limitations of voice recognition software.
Discharge Plan
Departure
Patient Disposition: Admit
Date of Disposition: 02/07/24
Time of Disposition: 17:58
Admit to: Telemetry
Presentation/result/management discussed w/ accepting MD/DO: Hospitalist
Discharge Problem:
Sepsis, Acute UTI, Diarrhea, Acute renal failure
Interventions
Interventions:
*Risk Screen - Suicide Last Done: 02/07/24 15:03
*General Assessment Last Done: 02/07/24 15:03
*Neglect/Abuse Screening Last Done: 02/07/24 15:03
ED- Fall Risk Assessment Last Done: 02/07/24 15:43
*ED COVID-19 Vaccine History Last Done: 02/07/24 15:03
ED- Neurological Assessment Last Done: 02/07/24 17:12
ED-Skin Assessment Last Done: 02/07/24 17:12
[2024-02-07] MEDS: ROCEPHIN 1000 MG IV (17:59)
[2024-02-07] MEDS: NSS 1000 IV ×2 (17:59→23:29)
--- NOTE | 2024-02-07 18:30 | HPS.HSE ---
Family Physician
-
Family Physician: NOT KNOW UNKNOWN - PT DOES
Chief Complaint
-
diarrhea
History of Present Illness
88-year-old female with past medical history of paroxysmal atrial fibrillation with pacemaker, SVT, hypertension, anemia, colonic angiectasia, diverticulosis, hemorrhoids, spinal fusion/chronic back pain, presenting with chills and generalized
weakness noticeably today. Patient has been having nonbloody watery diarrhea for at least the past 3 days. Patient had 2 episodes of vomiting today. No abdominal pain although she has been complaining of bilateral hip pain. No cough. No urinary
symptoms. Patient has been a bit more confused today.
[facility]. She was seen by GI and EGD showed possible healed ulcer in the antrum which was biopsied. Colonoscopy showed hemorrhoids and the perianal exam erythematous mucosa in the
rectum and diverticulosis as well as angiectasia in the cecum and proximal ascending colon which was treated with APC and clips. Patient received 2 units of blood during admission and IV iron and B12 supplementation.
Patient was recently on Augmentin for sinus infection which ended around the time of the previous hospitalization.
Medical History
Past Medical History
Past Medical History: Reports Other (paroxysmal atrial fibrillation with pacemaker, SVT, hypertension, anemia, colonic angiectasia, diverticulosis, hemorrhoids, spinal fusion/chronic back pain)
Past Surgical History: Reports Other ( Cardiac (Ablation X 2 , pacemaker), Gynecological (Hysterectomy), Orthopedic (Spinal fussion,) and Other (Hemorrhoidectomy))
Social History
Tobacco: Non-smoker
Alcohol: None
Drug: None
Family History
Family History: Not pertinent
Allergies / Home Medications
Allergies reflects when Allergies were last updated in [employer].
Home Medications with original date entered in [employer]
Allergy/Medication List:
Allergies
Allergy/AdvReac Type Severity Reaction Status Date / Time
NSAIDS (Non-Steroidal Allergy high bp Verified 04/10/23 06:15
Anti-Inflamma
oxycodone Allergy Vomiting Verified 04/10/23 06:15
rofecoxib Allergy high bld Verified 04/10/23 06:15
pressure
zolpidem tartrate Allergy hallucinati Verified 04/10/23 06:15
[From Ambien] ons
zolpidem tartrate Allergy hallucinati Uncoded 04/10/23 06:15
ons
Home Medications
sotalol 80 mg tablet 80 mg PO BID Arrhythmia 08/08/17
apixaban 5 mg tablet (Eliquis) 5 mg PO BID Blood clot prevention/tx 10/01/20
cyanocobalamin (vitamin B-12) 1,000 mcg tablet 1,000 mcg PO DAILY Supplement #0 tabs 01/31/24
lisinopril 20 mg tablet 20 mg PO DAILY Blood pressure #0 tabs 01/31/24
verapamil 240 mg tablet,extended release 240 mg PO NOON Arrhythmia #0 tabs 01/31/24
acetaminophen 500 mg tablet (Tylenol Extra Strength) 1,000 mg PO DAILYPRN PRN mild pain 02/07/24
ferrous sulfate 325 mg (65 mg iron) tablet,delayed release 325 mg PO Q48H@0800 anemia 02/07/24
Review of Systems
-
History Source: Patient
A 12 point ROS was completed and negative except as noted: Yes
Constitutional: Reports No Symptoms
EENT: Reports No Symptoms
Respiratory: Reports No Symptoms
Cardiac: Reports No Symptoms
Abdomen/GI: Reports No Symptoms
: Reports No Symptoms
Musculoskeletal: Reports No Symptoms
Skin: Reports No Symptoms
Neurological: Reports No Symptoms
Endocrine: Reports No Symptoms
Hematologic/Lymphatic: Reports No Symptoms
Psych: Reports No Symptoms
Physical Exam
Vital Signs
Vital Signs
Temp Pulse Resp BP Pulse Ox
102.5 F H 99 32 116/48 96
02/07/24 15:54 02/07/24 18:15 02/07/24 18:15 02/07/24 18:15 02/07/24 17:45
Physical Exam
General: Well Developed, Well Nourished and No Apparent Distress
HEENT: NormoCephalic, Moist mucous membranes and Atraumatic
Respiratory: Clear
Cardiac: S1/S2 and Regular Rhythm; No Murmur or Rub
GI: Soft, Non Tender, Non Distended and Normal Bowel Sounds; No Organomegaly
Rectal: Deferred by Provider
Musculoskeletal: No Clubbing, No Cyanosis and No Edema
Skin: No Rash
Neuro: Nonfocal/grossly intact
Laboratory Results
-
02/07/24 15:09
02/07/24 15:09
Laboratory Results
PT 24.4 Sec (11.4-14.6) H 02/07/24 15:09
INR 2.17 02/07/24 15:09
Lactic Acid 4.8 mmol/L (0.7-2.0) H* 02/07/24 16:24
Total Bilirubin 0.9 mg/dl (0.2-1.3) 02/07/24 15:09
AST 41 U/L (14-36) H 02/07/24 15:09
ALT 22 U/L (0-35) 02/07/24 15:09
Alkaline Phosphatase 74 U/L (38-126) 02/07/24 15:09
Data Reviewed
-
Lab Data: Labs Reviewed by me
Old Records: Reviewed
Impression/Plan
-
IMPRESSION:
PLAN:
# Sepsis secondary to gastroenteritis/colitis, rule out C. difficile, also with urinary tract infection
-UA shows greater than 100 WBC, positive nitrates, leukocyte esterase
-Lactic acid 4.8, continue to trend
-Check urine culture, blood cultures
-Check stool culture, C. difficile, norovirus
-N.p.o.
-IV fluids
-Zosyn
# Acute kidney injury likely prerenal
-IV fluids
-Hold lisinopril
# Hypokalemia secondary to GI losses
-Replete potassium
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
-Hemoglobin stable at 9.2 from recent admission
Severe iron deficiency anemia
-Continue iron supplement
Borderline B12 levels
-Continue B12
Paroxysmal atrial fibrillation with pacemaker
-Continue Eliquis
-Continue sotalol
History of SVT
-Continue verapamil
Essential hypertension
History of spinal fusion/chronic back pain sciatica/arthritis
DNR/DNI
DVT prophylaxis�Eliquis
N.p.o.
[2024-02-07] MEDS: KCL 270 MEQ IV (18:58)
--- NOTE | 2024-02-07 20:07 | PTCARENOTE ---
Pt received from ED to 427. Pt oriented to room and call gastelum.
[2024-02-07 20:42] LABS: Lactic Acid 2.3 mmol/L (0.7-2.0)
[2024-02-07] MEDS: ELIQUIS 2.5 MG PO (22:33)
[2024-02-07] MEDS: BETAPACE 80 MG PO (22:33)
[2024-02-07] MEDS: ZOSYN 50 IV (23:29)
[2024-02-08 00:44] LABS: Lactic Acid 1.7 mmol/L (0.7-2.0)
[2024-02-08 04:33] VITALS: BP 98/47
[2024-02-08] MEDS: ZOSYN 50 IV ×2 (04:48→10:00)
[2024-02-08 07:30] VITALS: BP 128/64
[2024-02-08] MEDS: FEOSOL 325 MG PO (08:39)
[2024-02-08] MEDS: VITAMIN B-12 1000 MCG PO (08:39)
[2024-02-08] MEDS: BETAPACE 80 MG PO ×2 (08:39→21:19)
[2024-02-08] MEDS: ELIQUIS 2.5 MG PO ×2 (08:39→21:19)
[2024-02-08] MEDS: NSS 1000 IV (08:40)
--- NOTE | 2024-02-08 08:47 | W.PN.HOSP.TC ---
Today's Communication/Plan
-
.
Assessment / Plan
Assessment / Plan
Physical Exam
General: Well Developed, Well Nourished and No Apparent Distress
HEENT: Normocephalic, Moist mucous membranes and Atraumatic
Respiratory: Clear
Cardiac: S1/S2 and Regular Rhythm; No Murmur or Rub
GI: Soft, Non Tender, Non Distended and Normal Bowel Sounds; No Organomegaly
Rectal: no rectal bleeding
Musculoskeletal: No Clubbing, No Cyanosis and No Edema
Skin: No Rash
Neuro: Nonfocal/grossly intact
Psych: no agitation
# Sepsis POA secondary to bacteremia and urinary tract infection
_ no GI symptoms , no diarrhea. Negative C diff. No abd pain on exam
-UA shows greater than 100 WBC, positive nitrates, leukocyte esterase
-Lactic acid 4.8, continue to trend down
-f/w urine culture, blood cultures
- ok for diet.
- no need for more IV fluids
-c/w Zosyn. Await blood work results
- Appreciate ID input
# Acute kidney injury likely prerenal
-IV fluids
-Hold lisinopril
# Hypokalemia secondary to GI losses
-Replete potassium
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
-Hemoglobin stable at 9.2 from recent admission
Severe iron deficiency anemia
-Continue iron supplement
Borderline B12 levels
-Continue B12
Paroxysmal atrial fibrillation with pacemaker
-Continue Eliquis
-Continue sotalol
History of SVT
-Continue verapamil
Essential hypertension
History of spinal fusion/chronic back pain sciatica/arthritis
DNR/DNI
DVT prophylaxis�Eliquis
�Total time spent to see the patient, examine the patient on the floor, review data and lab results, discuss treatment plan with the patient, nursing staff around 55 minutes
Anticipated Discharge: > 48 hours
Subjective/Interval History
-
Date of Service: February 08, 2024
She denies abd pain, no diarrhea, she wants to eat and feels hungry
no sob or cough
no fevers this morning
Objective Data
-
Labs:
Laboratory Results
02/08/24
07:34
WBC Pending
Hgb Pending
Hct Pending
Plt Count Pending
Sodium Pending
Potassium Pending
Chloride Pending
Carbon Dioxide Pending
BUN Pending
Creatinine Pending
Glucose Pending
Calcium Pending
Total Bilirubin Pending
AST Pending
ALT Pending
Alkaline Phosphatase Pending
Vital Signs:
Vital Signs
Temp Pulse Resp BP Pulse Ox
97.4 F 75 18 128/64 100
02/08/24 07:30 02/08/24 08:39 02/08/24 07:30 02/08/24 08:39 02/08/24 07:30
I&O
02/07/24 02/08/24 02/09/24
06:59 06:59 06:59
Intake Total 625 / 625
Balance 625 / 625
[2024-02-08 08:58] LABS: Hematocrit 29.5 % (37.0-47.0); Hemoglobin 8.9 g/dL (12.0-16.0); Mean Corp Hgb Conc. 30.2 g/dL (33.0-37.0); Mean Corpuscular Hgb 24.9 pg (27.0-31.0); Mean Corpuscular Volume 82.4 fL (81.0-99.0); Red Blood Cell Count 3.58 10^6/uL (4.20-5.40); Red Cell Dist. Width 31.1 % (11.5-14.5); White Blood Cell Count 23.6 10^3/uL (4.8-10.8)
[2024-02-08 09:24] LABS: Band Neutrophils 24 % (0-3); Lymphocytes 3 % (20-51); Monocytes 1 % (2-9); Platelet Count 90 10^3/uL (130-400); Segmented Neutrophils 65 % (42-75)
[2024-02-08 09:25] LABS: Anisocytosis 1+; Hypochromasia 1+; Metamyelocytes 4 % (-); Myelocytes 3 % (-); Normal RBC Morphology No; Platelets Checked Yes; Poikilocytosis Slight; Total Cells Counted 100
[2024-02-08 09:49] LABS: ALT (SGPT) 41 U/L (0-35); AST (SGOT) 72 U/L (14-36); Albumin 3.1 g/dl (3.5-5.0); Alkaline Phosphatase 90 U/L (38-126); Blood Urea Nitrogen 29 mg/dl (7-17); Calcium 7.8 mg/dl (8.4-10.2); Carbon Dioxide 15 mmol/L (22-30); Chloride 113 mmol/L (98-107); Estimated Creatinine Clearance 20 ml/min; Glucose 81 mg/dl (70-99); Potassium 4.1 mmol/L (3.5-5.1); Sodium 138 mmol/L (135-145); Total Bilirubin 1.3 mg/dl (0.2-1.3); Total Protein 5.6 g/dl (6.3-8.2); eGFR 28.84
[2024-02-08 11:30] VITALS: BP 112/48
--- NOTE | 2024-02-08 12:21 | CM ---
Patient seen bedside.
IA completed.
Patient lives alone at [place].
No steps to enter.
Patient drives, however currently not driving.
Ambulates without assistive devices.
patient denies home care needs.
PCP: cannot remember name
Pharmacy: [facility]
Plan: home no needs anticipated.
--- NOTE | 2024-02-08 15:24 | CON.ID ---
Consultation
-
Date/Time Consultation Requested: 02/08/24, 0735
Date/Time Consultation Performed: 02/08/24, 1530
Requesting Provider: Dr. Paloma Jama
Performing Provider: Dr. Loulou Nolasco
Reason for Consultation: Fever
Chief Complaint / Past History
Chief Complaint
Diarrhea, rigors
History of Present Illness
History obtained from patient and from daughter at bedside. 88 year old female with pAfib, PPM, HTn who was recently hospitalized 01/26-01/30 with symptomatic severe anemia. 01/29 underwent EGD and colonoscopy with findings of colonic angiectasias,
tx'd. At home developed diarrhea initially mild, then became worse on 02/03. On 02/06 she went to a luncheon but started rigoring and felt very weak. She was sent to ED . T=102.5. Lactic acid 4.6. Stool C. diff neg. She was started on Zosyn.
Admission blood cx's and Ucx + E. coli. She denies dysuria or flank pain. Has some urinary urgency today. No abdominal pain. Had 2 episodes of emesis yesterday. Today, diarrhea persists. c/o acute bilateral hip pain. Able to ambulate.
Past History
Additional Past Medical History:
Afib
PPM
HTN
diverticulosis
hemorrhoids
colonic angiectasia
chronic back pain
Spinal fusion
Hysterectomy
Allergy History:
NSAIDS (Non-Steroidal Anti-Inflamma Allergy (Verified 04/10/23 06:15)
high bp
oxycodone Allergy (Verified 04/10/23 06:15)
Vomiting
rofecoxib Allergy (Verified 04/10/23 06:15)
high bld pressure
zolpidem tartrate [From Ambien] Allergy (Verified 04/10/23 06:15)
hallucinations
Medications Reviewed: Yes
Current Antibiotics:
Zosyn
Social History
Tobacco: Non-Smoker
Alcohol: None
Drug: None
Living: Other ([place])
Family History
Family History: Not Pertinent
Review of Systems
Review of Systems
General: Fever, Chills and Change in Appetite
HEENT: Negative Sinus Problems, Headache or Pharyngitis
Cardiovascular: Negative Chest Pain or Edema
Respiratory: Dyspnea; Negative Cough
Endocrine: Weakness
Skin / Hair / Nails: Negative Rash
Neurological: Negative Headache or Dizziness
All systems: All other systems were reviewed and were negative
Vital Signs
Temp Pulse Resp BP Pulse Ox
97.5 F 72 18 112/48 95
02/08/24 11:30 02/08/24 11:30 02/08/24 11:30 02/08/24 11:30 02/08/24 11:30
Selected Entries
02/07/24
15:54
Temp 102.5 F H
Physical Exam
Physical Exam
Constitutional: No Acute Distress
Eyes: No Conjunctival Hemorrhage and Sclera Anicteric
Cardiovascular: Regular Rate, S1/S2 and Other (PPM site not induration/erythema)
Pulmonary: Clear
Gastrointestinal: Soft, Non Tender, Non Distended and Normal Bowel Sounds
Genito-Urinary: Negative Bowling or Suprapubic Tenderness
Extremities: Negative Edema
Musculoskeletal: Negative Joint Swelling (bilateral hips) or Joint Effusion (bilateral hips)
Neurological: AO x 3
Lab / Diagnostic Study Results
02/08/24 07:34
02/08/24 07:34
Abs Immat Gran (auto) 0.1 10^3/uL (0-0.05) H 02/07/24 15:09
Absolute Neuts (auto) 10.3 10^3/uL (1.4-6.5) H 02/07/24 15:09
Absolute Lymphs (auto) 0.3 10^3/uL (1.2-3.4) L 02/07/24 15:09
Absolute Monos (auto) 0.1 10^3/uL (0.1-0.6) 02/07/24 15:09
Absolute Basos (auto) 0.0 10^3/uL (0-0.2) 02/07/24 15:09
Total Counted 100 02/08/24 07:34
Immature Gran % 0.6 % (0-0.5) H 02/07/24 15:09
Neutrophils % 95.3 % (42.2-75.2) H 02/07/24 15:09
Lymphocytes % 3.0 % (20.5-51.1) L 02/07/24 15:09
Monocytes % 0.8 % (1.7-9.3) L 02/07/24 15:09
Eosinophils % 0.0 % (0-6) 02/07/24 15:09
Basophils % 0.3 % (0-2) 02/07/24 15:09
Abs Neuts (Manual) 21.0 10^3/uL (1.4-6.5) H 02/08/24 07:34
Segmented Neutrophils 65 % (42-75) 02/08/24 07:34
Band Neutrophils 24 % (0-3) H 02/08/24 07:34
Lymphocytes (Manual) 3 % (20-51) L 02/08/24 07:34
PT 24.4 Sec (11.4-14.6) H 02/07/24 15:09
INR 2.17 02/07/24 15:09
Lactic Acid 1.7 mmol/L (0.7-2.0) 02/08/24 00:25
Ur Squamous Epith Cells 0-2 /LPF (Few) 02/07/24 16:24
Microbiology Results
Micro:
02/07/24 16:24 Urine Culture - Preliminary
Urine Escherichia coli
02/07/24 17:20 Salmonella/Shigella Culture - Preliminary
Feces/Stool Culture in Progress
Campylobacter Culture - Preliminary
Culture in Progress
Shiga Toxin Test - Final
No E. coli Shiga Toxin 1 or 2 detected.
02/08/24 09:30 Blood Culture - Pending
Blood/Venous
02/07/24 16:24 Blood Culture - Preliminary
Blood/Venous Escherichia coli
Gram Stain - Final
02/07/24 16:24 Blood Culture - Preliminary
Blood/Venous Positive culture in progress
Gram Stain - Final
02/07/24 17:20 C. difficile GDH Antigen & Toxins - Final
Feces/Stool Negative for toxigenic C.difficile
- Final
Negative for Norovirus GI and GII.
02/07/24 16:24 Influenza Types A & B ([place]) - Final
Nasal Swab Negative for Influenza A & B, NAAT
Negative results must be combined with clinical observations
and patient history.
Nucleic Acid Amplification test (NAAT)performed on the
[employer] platform.
Assessment / Plan
# E. coli UTI and bacteremia
# Diarrhea
# Sepsis: fever, leukocytosis, bandemia
# GELACIO
- E. coli from diarrhea most likely contaminated urethra leading to UTI then bacteremia
- C. diff neg. Norovirus pending. Stool cx pending
- Repeat blood cx's
-Agree with renal US.
-Narrow Zosyn to ceftriaxone.
-Trend temps, wbc.
-OK with Imodium
[2024-02-08 15:30] VITALS: BP 145/63
[2024-02-08 15:54] VITALS: BMI 19.5
[2024-02-08] MEDS: VISBIOME 2 CAP PO (16:35)
[2024-02-08] MEDS: STERILE WATER FOR INJECTION 20 ML IV (16:35)
[2024-02-08] MEDS: ROCEPHIN 2000 MG IV (16:36)
[2024-02-08 19:39] VITALS: BP 142/62
[2024-02-08 23:13] VITALS: BP 135/61
[2024-02-09] VITALS (7 sets, daily range): BP systolic 110–161; BP diastolic 67–92; PULSE 70; O2SAT 100
[2024-02-09] MEDS: NSS 1000 IV (01:54)
[2024-02-09] MEDS: TYLENOL 1000 MG PO (02:43)
[2024-02-09] MEDS: VISBIOME 2 CAP PO (08:00)
[2024-02-09] MEDS: VITAMIN B-12 1000 MCG PO (08:01)
[2024-02-09] MEDS: BETAPACE 80 MG PO ×2 (08:01→20:12)
[2024-02-09] MEDS: ELIQUIS 2.5 MG PO ×2 (08:02→20:12)
[2024-02-09 09:41] LABS: Hematocrit 29.5 % (37.0-47.0); Hemoglobin 8.9 g/dL (12.0-16.0); Mean Corp Hgb Conc. 30.2 g/dL (33.0-37.0); Mean Corpuscular Hgb 24.3 pg (27.0-31.0); Mean Corpuscular Volume 80.6 fL (81.0-99.0); Platelet Count 91 10^3/uL (130-400); Red Blood Cell Count 3.66 10^6/uL (4.20-5.40); Red Cell Dist. Width 31.8 % (11.5-14.5); White Blood Cell Count 13.9 10^3/uL (4.8-10.8)
[2024-02-09 10:12] LABS: ALT (SGPT) 34 U/L (0-35); AST (SGOT) 43 U/L (14-36); Albumin 3.1 g/dl (3.5-5.0); Alkaline Phosphatase 112 U/L (38-126); Blood Urea Nitrogen 32 mg/dl (7-17); Calcium 8.5 mg/dl (8.4-10.2); Carbon Dioxide 18 mmol/L (22-30); Chloride 110 mmol/L (98-107); Estimated Creatinine Clearance 24 ml/min; Glucose 75 mg/dl (70-99); Potassium 3.1 mmol/L (3.5-5.1); Sodium 137 mmol/L (135-145); Total Bilirubin 0.6 mg/dl (0.2-1.3); Total Protein 5.8 g/dl (6.3-8.2); eGFR 36.41
--- NOTE | 2024-02-09 11:08 | PTCARENOTE ---
Pt with multiple episodes of diarrhea; loose & dark green in color. Imodium given as ordered. Will monitor.
--- NOTE | 2024-02-09 11:48 | PN.CDI ---
Addendum entered and electronically signed by Mikki Jama MD 02/09/24 12:48:
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
Original Note:
CDI
- -
CDI:
Physician Documentation Request
Admit Date: 02/07/24 19:02
Dear Doctor Wiley,
Please review the following and provide your response in the progress notes.
Clinical Indicators:
Tip Inserter, 02/07
#Weight-117 lbs 1.6 oz (3-20, BMI 19.5-underwt >65 yrs).
#Per current clinical data at admission pt with 2-13 lb weight loss and eating poorly (score 4).
Pt feels she has been eating poorly but unable to relate exact amounts of foods
#...consumed prior to admission however does feel she has been with
#...decreased intakes, approx <50% for over a month.
#During visit RD able to observe appearance of estimated moderate loss at buddhist,
#...orbital, buccal; mild loss-ribs, clavicle; moderate interosseous; mild quads/calves.
#Due to observations of multiple site fat/muscle loss and reported decreased intakes,
#...pt meeting criteria for moderate protein/calorie malnutrition
#...(ASPEN/AND guidelines, chronic illness).
Based on the information and your clinical assessment, please clarify the patient's nutritional status?
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
Other (please specify)
[place] Criteria ([employer] Hospitalist 2017)
2 or more criteria must be present for either
non severe or severe malnutrition
Note that the criteria differs related to the
presence of an acute or chronic illness
Chronic Illness
Energy Intake Non Severe: <75% for >1 month
Severe: <75% for >1 month
Weight Loss Non Severe: 5% over 1 month
7.5% over 3 months
10% over 6 months
20% over 1 year
Severe: >5% over 1 month
>7.5% over 3 months
>10% over 6 months
>20% over 1 year
Body Fat Non Severe: Mild Loss
Severe: Severe Loss
Muscle Mass Non Severe: Mild Loss
Severe: Severe Loss
Use of terms such as suspected, likely, concern for, or probable (associated with a specific diagnosis that is being evaluated, monitored, or treated as if it exists) are acceptable and can be coded in the inpatient setting, when documented at the
time of discharge.
Thank you,
Gerri Hung RN BSN CCDS
CDI Specialist
please contact via tiger text
Please use your independent medical judgment in providing your response.
--- NOTE | 2024-02-09 11:57 | PN.CDI ---
Addendum entered and electronically signed by Mikki Jama MD 02/09/24 12:48:
Sepsis only
Original Note:
CDI
- -
CDI:
Physician Documentation Request
Admit Date: 02/07/24 19:02
Dear Doctor Wiley,
Please review the following and provide your response in the progress notes.
Clinical Indicators:
PN, 02/07
# Sepsis POA secondary to bacteremia and urinary tract infection
# Acute kidney injury likely prerenal
Please clarify which of the following most accurately describes the status of the patient's infection:
Severe sepsis, with GELACIO (please clarify association)
Sepsis, only
Other
Sepsis
- Systemic manifestations of infection, with 2 or more SIRS criteria which include:
- Fever >100.4 degrees F or hypothermia < 96.8 degrees F
- Leukocytosis - WBC > 12,000 or leukopenia - WBC < 4,000 or > 10% bands
- Tachycardia > 90 beats per minute
- Tachypnea - RR > 20 breaths per minute or PaCO2 , 32mmHg
Source: Merck Manual 2013
- Indicate the known or suspected underlying infection, such as UTI, pneumonia or cellulitis
Severe Sepsis
- Sepsis with associated acute organ dysfunction, such as renal or respiratory failure
- Documentation should indicate the association between the sepsis and the organ dysfunction
Use of terms such as suspected, likely, concern for, or probable (associated with a specific diagnosis that is being evaluated, monitored, or treated as if it exists) are acceptable and can be coded in the inpatient setting, when documented at the
time of discharge.
Thank you,
Gerri Hung RN BSN CCDS
CDI Specialist
please contact via tiger text
Please use your independent medical judgment in providing your response.
--- NOTE | 2024-02-09 12:11 | W.PN.HOSP.TC ---
Today's Communication/Plan
-
.
Assessment / Plan
Assessment / Plan
Physical Exam
General: Well Developed, Well Nourished and No Apparent Distress
HEENT: Normocephalic, Moist mucous membranes and Atraumatic
Respiratory: Clear
Cardiac: S1/S2 and Regular Rhythm; No Murmur or Rub
GI: Soft, Non Tender, Non Distended and Normal Bowel Sounds; No Organomegaly
Rectal: no rectal bleeding
Musculoskeletal: No Clubbing, No Cyanosis and No Edema
Skin: No Rash
Neuro: Nonfocal/grossly intact
Psych: no agitation
# Sepsis POA secondary to bacteremia and urinary tract infection
No fevers
mild loose stools, on PRN Imodium. C diff negative
WBC is coming down
-UA shows greater than 100 WBC, positive nitrates, leukocyte esterase
-Lactic acid 4.8, continue to trend down
-repeat blood culture 02/07
Renal US Moderate to severe hydronephrosis on the right
- ok for diet.
- no need for more IV fluids
-s/p Zosyn. started IV Rocephin 02/07
- Appreciate ID input
# Hypokalemia, replace
# Moderate to severe hydronephrosis on the right
Pt + for Right CV tenderness
will do CT study
d/w urology
Appreciate urology input
# Acute kidney injury likely prerenal
Creatinine is coming down
Creatinine 1.7 on admission, today 1.4, s/p IVF, Hold lisinopril
# Hypokalemia secondary to GI losses
-Replete potassium
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
-Hemoglobin stable at 8.9 from recent admission
Severe iron deficiency anemia
-Continue iron supplement
Borderline B12 levels
-Continue B12
Paroxysmal atrial fibrillation with pacemaker
-Continue Eliquis
-Continue sotalol
History of SVT
-Resumed verapamil
Essential hypertension
History of spinal fusion/chronic back pain sciatica/arthritis
DNR/DNI
DVT prophylaxis�Eliquis
�Total time spent to see the patient, examine the patient on the floor, review data and lab results, discuss treatment plan with the patient, daughter, nursing staff around 55 minutes
Anticipated Discharge: > 48 hours
Subjective/Interval History
-
Date of Service: February 09, 2024
Objective Data
-
Labs:
Laboratory Results
02/09/24
07:44
WBC 13.9 H
Hgb 8.9 L
Hct 29.5 L
Plt Count 91 L
Sodium 137
Potassium 3.1 L
Chloride 110 H
Carbon Dioxide 18 L
BUN 32 H
Creatinine 1.4 H
Glucose 75
Calcium 8.5
Total Bilirubin 0.6
AST 43 H
ALT 34
Alkaline Phosphatase 112
Vital Signs:
Vital Signs
Temp Pulse Resp BP Pulse Ox
97.4 F 71 16 159/78 97
02/09/24 10:51 02/09/24 10:51 02/09/24 10:51 02/09/24 10:51 02/09/24 10:51
I&O
02/08/24 02/09/24 02/10/24
06:59 06:59 06:59
Intake Total 625 / 625 240 / 240
Balance 625 / 625 240 / 240
[2024-02-09] MEDS: KCL 20 MEQ PO (14:17)
[2024-02-09] MEDS: CALAN EXTENDED RELEASE 240 MG PO (14:17)
--- NOTE | 2024-02-09 14:36 | W.PN.ID1 ---
Date of Service
Date of Service: February 09, 2024
Today's Communication
Continue antibiotics.
Assessment / Plan
# E. coli UTI and bacteremia
# Diarrhea
# Sepsis: fever, leukocytosis, bandemia
# GELACIO
- E. coli from diarrhea most likely contaminated urethra leading to UTI then bacteremia
- C. diff neg. Norovirus pending. Stool cx negative
- Repeat blood cx's
-Renal ultrasound with severe right hydronephrosis. CT scan confirms severe hydronephrosis. Awaiting further input from Urology
- Continue ceftriaxone.
- Trend temps, wbc.
-OK with Imodium
Chief Complaint
-: UTI and Bacteremia
Subjective / Review of Systems
Review of Systems: No Fever and No Chills
Vital Signs / Physical Exam
Vital Signs
Vital Signs
Temp Pulse Resp BP Pulse Ox
97.4 F 71 16 159/78 97
02/09/24 10:51 02/09/24 10:51 02/09/24 10:51 02/09/24 10:51 02/09/24 10:51
Physical Exam
Constitutional: No Acute Distress, Comfortable, Chronically Ill and Non-toxic
Eyes: Sclera Anicteric
Cardiovascular: S1/S2; Negative S3/S4
Pulmonary: Wheezes and Non Labored; Negative Rales
Gastrointestinal: Soft and Non Tender
Neurological: Awake and Alert
Psychological: Calm and Other (anxious)
Objective Data
Lab Data
Lab Results
02/09/24 07:44
02/09/24 07:44
PT 24.4 Sec (11.4-14.6) H 02/07/24 15:09
INR 2.17 02/07/24 15:09
Estimated Creat Clear 24 ml/min 02/09/24 07:44
Lactic Acid 1.7 mmol/L (0.7-2.0) 02/08/24 00:25
Total Bilirubin 0.6 mg/dl (0.2-1.3) 02/09/24 07:44
AST 43 U/L (14-36) H 02/09/24 07:44
ALT 34 U/L (0-35) 02/09/24 07:44
Alkaline Phosphatase 112 U/L (38-126) 02/09/24 07:44
Most recent labs reviewed.
Micro Results:
02/07/24 17:20 Salmonella/Shigella Culture - Final
Feces/Stool No Salmonella, Shigella, Aeromonas or Plesiomonas species
isolated.
Campylobacter Culture - Final
No Campylobacter species isolated.
Shiga Toxin Test - Final
No E. coli Shiga Toxin 1 or 2 detected.
02/08/24 09:30 Blood Culture - Preliminary
Blood/Venous No Growth in 24 hours- Final report to follow
02/09/24 07:44 Blood Culture - Pending
Blood/Venous
02/07/24 16:24 Urine Culture - Final
Urine Escherichia coli
02/07/24 16:24 Blood Culture - Preliminary
Blood/Venous Escherichia coli
Gram Stain - Final
02/07/24 16:24 Blood Culture - Preliminary
Blood/Venous Escherichia coli
Gram Stain - Final
02/07/24 17:20 C. difficile GDH Antigen & Toxins - Final
Feces/Stool Negative for toxigenic C.difficile
- Final
Negative for Norovirus GI and GII.
02/07/24 16:24 Influenza Types A & B ([facility]) - Final
Nasal Swab Negative for Influenza A & B, NAAT
Negative results must be combined with clinical observations
and patient history.
Nucleic Acid Amplification test (NAAT)performed on the
[employer] platform.
[2024-02-09] MEDS: ROCEPHIN 2000 MG IV (16:00)
[2024-02-09] MEDS: STERILE WATER FOR INJECTION 20 ML IV (16:00)
--- NOTE | 2024-02-09 19:25 | CONS.URO ---
Consultation
-
Performing Provider: Prem
Reason for Consultation: Hydronephrosis, UTI
Medical History
History of Present Illness
88F with no prior urologic history presenting with chills and generalized weakness
Nonbloody watery diarrhea for at 3 days prior to admit.�
Patient had 2 episodes of vomiting. Noabdominal pain although she has been complaining of bilateral hip pain
She has had no clear UTI symptoms - does not c/o dysuria or frequency
She did not have flank pain
No prior hx kidney stones
Patient was discharged from the hospital 7 days ago for symptomatic anemia.� She was seen by GI and EGD showed possible healed ulcer in the antrum which was biopsied.� Colonoscopy showed hemorrhoids and the perianal exam erythematous mucosa in the
rectum and diverticulosis as well as angiectasia in the cecum and proximal ascending colon which was treated with APC and clips.� Patient received 2 units of blood during admission and IV iron and B12 supplementation.
Patient was recently on Augmentin for sinus infection which ended around the time of the previous hospitalization.
She was found to be febrile and septic with UA positive for infection
Started on broad spectrum abx
US showed R hydronephrosis and atrophic L kidney
GELACIO
Urology consulted for hydronephrosis
CT scan ordered showing R hydro, malrotated kidney, no clear source of obstruction
Past Medical History
Past Medical History: Other (paroxysmal atrial fibrillation with pacemaker, SVT, hypertension, anemia, colonic angiectasia, diverticulosis, hemorrhoids, spinal fusion/chronic back pain)
Social History
Tobacco: Non-smoker
Alcohol: None
Drug: None
Family History
Family History: Reviewed & Not Pertinent
Allergies/Home Medications
Allergies
Allergy/AdvReac Type Severity Reaction Status Date / Time
NSAIDS (Non-Steroidal Allergy high bp Verified 04/10/23 06:15
Anti-Inflamma
oxycodone Allergy Vomiting Verified 04/10/23 06:15
rofecoxib Allergy high bld Verified 04/10/23 06:15
pressure
zolpidem tartrate Allergy hallucinati Verified 04/10/23 06:15
[From Ambien] ons
Home Medications
Medication Instructions Recorded Confirmed Type
sotalol 80 mg tablet 80 mg PO BID Arrhythmia 08/08/17 02/07/24 History
apixaban 5 mg tablet (Eliquis) 5 mg PO BID Blood clot 10/01/20 02/07/24 History
prevention/tx
cyanocobalamin (vitamin B-12) 1,000 mcg PO DAILY Supplement #0 01/31/24 02/07/24 Rx
1,000 mcg tablet tabs
lisinopril 20 mg tablet 20 mg PO DAILY Blood pressure #0 01/31/24 02/07/24 Rx
tabs
verapamil 240 mg tablet,extended 240 mg PO NOON Arrhythmia #0 tabs 01/31/24 02/07/24 Rx
release
acetaminophen 500 mg tablet 1,000 mg PO DAILYPRN PRN mild pain 02/07/24 02/07/24 History
(Tylenol Extra Strength)
ferrous sulfate 325 mg (65 mg 325 mg PO Q48H@0800 anemia 02/07/24 02/07/24 History
iron) tablet,delayed release
Physical Exam
Vital Signs
Vital Signs
Temp Pulse Resp BP Pulse Ox
97.8 F 86 16 134/68 93
02/09/24 15:05 02/09/24 15:05 02/09/24 15:05 02/09/24 15:05 02/09/24 15:05
Lab / Testing Results
Laboratory Results
02/09/24 07:44
02/09/24 07:44
Physical Exam
General: Well Developed, Well Nourished and No Apparent Distress
Respiratory: Non Labored Respirations
GI: Soft, Non Tender and Non Distended
Genito-urinary: No Costovertebral Tend
Skin: Warm and Dry
Neuro: AO x 3
Psych: Calm and Intact Judgement
Assessment / Plan
-
88F readmitted with fever, diarrhea, and bacteremia related to E coli UTI
CT shows R hydronephrosis without obstructing stone
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
- No clear symptoms of ascending UTI/pyelonephritis - no reported flank pain and no CVA tenderness on my exam. Back tendeness is low/midline and in chronic spine locations - no new locations of back pain
- Given improvement in infectious signs and renal function, would not recommend acute intervention
- If recurrence of fevers or worsening clinically, would place stent or nephrostomy
- Recommend 10-14 day total abx course for complicated UTI
- Outpatient follow up to further eval likely chronic hydronephrosis
Data Reviewed
-
CT Scan: Image personally visualized and interpreted
Lab Data: Labs Reviewed
[2024-02-10 03:00] VITALS: BP 150/73
[2024-02-10 07:00] VITALS: BP 147/77
[2024-02-10 07:34] LABS: Hematocrit 26.8 % (37.0-47.0); Hemoglobin 8.2 g/dL (12.0-16.0); Mean Corp Hgb Conc. 30.6 g/dL (33.0-37.0); Mean Corpuscular Hgb 24.2 pg (27.0-31.0); Mean Corpuscular Volume 79.1 fL (81.0-99.0); Platelet Count 109 10^3/uL (130-400); Red Blood Cell Count 3.39 10^6/uL (4.20-5.40); Red Cell Dist. Width 31.3 % (11.5-14.5); White Blood Cell Count 10.3 10^3/uL (4.8-10.8)
[2024-02-10 08:24] LABS: Blood Urea Nitrogen 26 mg/dl (7-17); Calcium 8.5 mg/dl (8.4-10.2); Carbon Dioxide 18 mmol/L (22-30); Chloride 112 mmol/L (98-107); Estimated Creatinine Clearance 30 ml/min; Glucose 88 mg/dl (70-99); Potassium 3.4 mmol/L (3.5-5.1); Sodium 137 mmol/L (135-145); eGFR 48.63
--- NOTE | 2024-02-10 08:58 | W.PN.HOSP.TC ---
Today's Communication/Plan
-
likely dc on Monday/ Monday.
Assessment / Plan
Assessment / Plan
Physical Exam
General: Well Developed, Well Nourished and No Apparent Distress
HEENT: Normocephalic, Moist mucous membranes and Atraumatic
Respiratory: Clear
Cardiac: S1/S2 and Regular Rhythm; No Murmur or Rub
GI: Soft, Non Tender, Non Distended and Normal Bowel Sounds; No Organomegaly
Rectal: no rectal bleeding
Musculoskeletal: No Clubbing, No Cyanosis and No Edema
Skin: No Rash
Neuro: Nonfocal/grossly intact
Psych: no agitation
# Sepsis POA secondary to bacteremia and urinary tract infection
No fevers
mild loose stools, on PRN Imodium. Probiotic. C diff negative
Leukocytosis has resolved.
-UA shows greater than 100 WBC, positive nitrates, leukocyte esterase
-Lactic acid 4.8, continue to trend down
-repeat blood culture 02/07 is negative. Blood culture 02/08 pending.
Renal US Moderate to severe hydronephrosis on the right
- ok for diet.
- no need for more IV fluids
-s/p Zosyn. started IV Rocephin 02/07
- Appreciate ID input
# Hypokalemia at 3.4, replace
# Moderate to severe hydronephrosis on the right
She denies flank pain.
CT confirmed hydronephrosis. No definite mass or calcification identified to explain the etiology
d/w urology, seems chronic process. Plan to treat the infection and OP follow up.
Appreciate urology input
# Acute kidney injury likely prerenal
Creatinine is coming down to 1.1
Creatinine 1.7 on admission,s/p IVF,
Can resume lisinopril upon discharge.
# Hypokalemia secondary to GI losses
-Replete potassium
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
-Hemoglobin stable at 8 from recent admission
Severe iron deficiency anemia
-Continue iron supplement
Borderline B12 levels
-Continue B12
Paroxysmal atrial fibrillation with pacemaker
-Continue Eliquis
-Continue sotalol
History of SVT
-Resumed verapamil
Essential hypertension
History of spinal fusion/chronic back pain sciatica/arthritis
DNR/DNI
DVT prophylaxis�Eliquis
�Total time spent to see the patient, examine the patient on the floor, review data and lab results, discuss treatment plan with the patient, daughter, nursing staff around 57 minutes
Anticipated Discharge: Within 24 hours
Subjective/Interval History
-
Date of Service: February 10, 2024
No flank pain
No fevers
Objective Data
-
Labs:
Laboratory Results
02/10/24
07:03
WBC 10.3
Hgb 8.2 L
Hct 26.8 L
Plt Count 109 L
Sodium 137
Potassium 3.4 L
Chloride 112 H
Carbon Dioxide 18 L
BUN 26 H
Creatinine 1.1 H
Glucose 88
Calcium 8.5
Vital Signs:
Vital Signs
Temp Pulse Resp BP Pulse Ox
97.4 F 76 16 147/77 94
02/10/24 07:00 02/10/24 07:00 02/10/24 07:00 02/10/24 07:00 02/10/24 07:00
I&O
02/09/24 02/10/24 02/11/24
06:59 06:59 06:59
Intake Total 240 / 240 480 / 480 240 / 240
Balance 240 / 240 480 / 480 240 / 240
[2024-02-10] MEDS: VISBIOME 2 CAP PO (09:08)
[2024-02-10] MEDS: FEOSOL 325 MG PO (09:09)
[2024-02-10] MEDS: BETAPACE 80 MG PO ×2 (09:09→20:19)
[2024-02-10] MEDS: ELIQUIS 2.5 MG PO ×2 (09:09→20:19)
[2024-02-10] MEDS: VITAMIN B-12 1000 MCG PO (09:10)
[2024-02-10] MEDS: KCL 20 MEQ PO (09:11)
[2024-02-10 11:00] VITALS: BP 153/79
--- NOTE | 2024-02-10 12:57 | W.PN.URO.CBU ---
Today's Communication / Plan
-
Abx course per ID
Stable for discharge on 10-14 day total abx course from urology standpoint
Outpatient follow up - contact info given to patient's daughter
Assessment / Plan
-
88F readmitted with fever, diarrhea, and bacteremia related to E coli UTI
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
- No clear symptoms of ascending UTI/pyelonephritis - no reported flank pain and no CVA tenderness on my exam. Back tendeness is low/midline and in chronic spine locations - no new locations of back pain
- Given improvement in infectious signs and renal function, would not recommend acute intervention
- Recommend 10-14 day total abx course for complicated UTI - ID following for abx recs
- Outpatient follow up to further eval likely chronic hydronephrosis with NM renal scan and discuss any management options if needed
Diagnosis
-
Date of Service: February 10, 2024
-
Patient Diagnosis:
malrotated kidney
R hydronephrosis
UTI
Post Op Day:
Subjective
-
feeling well today
No flank pain or UTI sx
Objective
-
Vital Signs
Temp Pulse Resp BP Pulse Ox
97.9 F 70 16 153/79 96
02/10/24 11:00 02/10/24 11:00 02/10/24 11:00 02/10/24 11:00 02/10/24 11:00
Intake and Output
02/09/24 02/10/24 02/11/24
06:59 06:59 06:59
Intake Total 240 / 240 480 / 480 240 / 240
Balance 240 / 240 480 / 480 240 / 240
Intake:
Oral fluids 240 / 240 480 / 480 240 / 240
Other:
Number of approximated MODERATE 3 3 2
amounts of urine
Laboratory Results
02/10/24 07:03
02/10/24 07:03
Physical Exam
-
General - well developed, well nourished, no acute distress
Chest - clear bilaterally
Abdomen - soft, non-tender, no CVAT
Skin - warm & dry with no rash
Neuro - AOx3
--- NOTE | 2024-02-10 13:35 | W.PN.ID1 ---
Date of Service
Date of Service: February 10, 2024
Today's Communication
- start keflex to complete 10 day course thorugh 02/05
- follow up with PCP
Assessment / Plan
# E. coli UTI and bacteremia
# Diarrhea
# Sepsis: fever, leukocytosis, bandemia
# GELACIO
- Repeat blood cx's no growth to date
-Renal ultrasound with severe right hydronephrosis. CT scan confirms severe hydronephrosis. Awaiting further input from Urology
- start keflex to complete 10 day course thorugh 02/05
- follow up with PCP
Chief Complaint
-: UTI and Bacteremia
Subjective / Review of Systems
afebrile
bp stable
leukocytosis has resovled
cr improving
urine culture: 100K e coli
repeat blood cultures no growth to date
Vital Signs / Physical Exam
Vital Signs
Vital Signs
Temp Pulse Resp BP Pulse Ox
97.9 F 70 16 153/79 96
02/10/24 11:00 02/10/24 11:00 02/10/24 11:00 02/10/24 11:00 02/10/24 11:00
Physical Exam
Constitutional: No Acute Distress
Cardiovascular: Regular Rate and S1/S2; Negative Murmur or Rub
Pulmonary: Clear and Symmetric; Negative Wheezes or Rales
Gastrointestinal: Soft, Non Tender, Non Distended and Normal Bowel Sounds
Genito-Urinary: Negative Suprapubic Tenderness or CVA Tenderness
Skin: Warm and Dry; Negative Rash or Jaundice
Objective Data
Lab Data
Lab Results
02/10/24 07:03
02/10/24 07:03
PT 24.4 Sec (11.4-14.6) H 02/07/24 15:09
INR 2.17 02/07/24 15:09
Estimated Creat Clear 30 ml/min 02/10/24 07:03
Lactic Acid 1.7 mmol/L (0.7-2.0) 02/08/24 00:25
Total Bilirubin 0.6 mg/dl (0.2-1.3) 02/09/24 07:44
AST 43 U/L (14-36) H 02/09/24 07:44
ALT 34 U/L (0-35) 02/09/24 07:44
Alkaline Phosphatase 112 U/L (38-126) 02/09/24 07:44
Most recent labs reviewed.
Micro Results:
02/08/24 09:30 Blood Culture - Preliminary
Blood/Venous No Growth in 48 hours- Final report to follow
02/09/24 07:44 Blood Culture - Preliminary
Blood/Venous No Growth in 24 hours- Final report to follow
02/07/24 16:24 Blood Culture - Final
Blood/Venous Escherichia coli
Gram Stain - Final
02/07/24 16:24 Blood Culture - Final
Blood/Venous Escherichia coli
Gram Stain - Final
02/07/24 17:20 Salmonella/Shigella Culture - Final
Feces/Stool No Salmonella, Shigella, Aeromonas or Plesiomonas species
isolated.
Campylobacter Culture - Final
No Campylobacter species isolated.
Shiga Toxin Test - Final
No E. coli Shiga Toxin 1 or 2 detected.
02/07/24 16:24 Urine Culture - Final
Urine Escherichia coli
02/07/24 17:20 C. difficile GDH Antigen & Toxins - Final
Feces/Stool Negative for toxigenic C.difficile
- Final
Negative for Norovirus GI and GII.
02/07/24 16:24 Influenza Types A & B ([facility]) - Final
Nasal Swab Negative for Influenza A & B, NAAT
Negative results must be combined with clinical observations
and patient history.
Nucleic Acid Amplification test (NAAT)performed on the
[employer] platform.
[2024-02-10 16:26] VITALS: BP 162/73
[2024-02-10] MEDS: KEFLEX 500 MG PO ×2 (17:44→21:16)
[2024-02-10 19:56] VITALS: BP 180/91
[2024-02-10 23:33] VITALS: BP 165/83
[2024-02-11] VITALS (7 sets, daily range): BP systolic 127–196; BP diastolic 60–103
[2024-02-11 06:42] LABS: Blood Urea Nitrogen 18 mg/dl (7-17); Carbon Dioxide 20 mmol/L (22-30); Chloride 108 mmol/L (98-107); Estimated Creatinine Clearance 37 ml/min; Glucose 95 mg/dl (70-99); Potassium 3.6 mmol/L (3.5-5.1); Sodium 138 mmol/L (135-145); eGFR > 60.00
[2024-02-11] MEDS: VITAMIN B-12 1000 MCG PO (08:34)
[2024-02-11] MEDS: BETAPACE 80 MG PO ×2 (08:34→19:35)
[2024-02-11] MEDS: ELIQUIS 2.5 MG PO ×2 (08:34→19:35)
[2024-02-11] MEDS: KEFLEX 500 MG PO ×4 (08:34→22:21)
[2024-02-11] MEDS: VISBIOME 2 CAP PO (08:35)
--- NOTE | 2024-02-11 09:16 | W.PN.HOSP.TC ---
Addendum entered and electronically signed by Mikki Jama MD 02/11/24 16:46:
Addendum
#Patient had some confusion that was noted on admission and at home. Now more clear mentation and doing much better per daughter. Likely toxic metabolic encephalopathy secondary to bacteremia/UTI that resolved now.
Close with daughter Gabrielle. Would like more observation in the hospital since patient lives alone at night
Discussed with case managers, visiting nurse will be coordinated on Monday
# Likely primary hypertension, newly diagnosis/undertreated high blood pressure. Blood pressure went up to 180/91 nighttime, consistent with hypertensive urgency. Patient seems to have elevated systolic blood pressure on multiple occasions. Will
start the patient on amlodipine.
End
Original Note:
Today's Communication/Plan
-
dc
Assessment / Plan
Assessment / Plan
Physical Exam
General: Well Developed, Well Nourished and No Apparent Distress
HEENT: Normocephalic, Moist mucous membranes and Atraumatic
Respiratory: Clear
Cardiac: S1/S2 and Regular Rhythm; No Murmur or Rub
GI: Soft, Non Tender, Non Distended and Normal Bowel Sounds; No Organomegaly
Rectal: no rectal bleeding
Musculoskeletal: No Clubbing, No Cyanosis and No Edema
Skin: No Rash
Neuro: Nonfocal/grossly intact
Psych: no agitation
# Sepsis POA secondary to bacteremia and urinary tract infection
No fevers
mild loose stools, on PRN Imodium. Probiotic. C diff negative
Leukocytosis has resolved.
-UA shows greater than 100 WBC, positive nitrates, leukocyte esterase
-Lactic acid 4.8, continue to trend down
-repeat blood culture �no growth to date
Renal US Moderate to severe hydronephrosis on the right
- ok for diet.
- no need for more IV fluids
-s/p Zosyn. started IV Rocephin 02/07 , now on Keflex through 02/16.
- Appreciate ID input
# Hypokalemia at 3.4, replace
# Moderate to severe hydronephrosis on the right
She denies flank pain.
CT confirmed hydronephrosis. No definite mass or calcification identified to explain the etiology
d/w urology, seems chronic process. Plan to treat the infection and OP follow up.
Appreciate urology input
# Acute kidney injury likely prerenal
Creatinine is coming down to 1.1
Creatinine 1.7 on admission,s/p IVF,
Can resume lisinopril upon discharge.
# Hypokalemia secondary to GI losses
-Replete potassium
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
-Hemoglobin stable at 8 from recent admission
Severe iron deficiency anemia
-Continue iron supplement
Borderline B12 levels
-Continue B12
Paroxysmal atrial fibrillation with pacemaker
-Continue Eliquis
-Continue sotalol
History of SVT
-Resumed verapamil
Essential hypertension
History of spinal fusion/chronic back pain sciatica/arthritis
DNR/DNI
DVT prophylaxis�Eliquis
�Total discharge time spent to see the patient, examine the patient on the floor, review data and lab results, discuss discharge plan with the patient, daughter, nursing staff around 67 minutes
Anticipated Discharge: Today
Subjective/Interval History
-
Date of Service: February 11, 2024
Doing well
No pain issues
no fevers
Objective Data
-
Labs:
Laboratory Results
02/11/24
05:34
Sodium 138
Potassium 3.6
Chloride 108 H
Carbon Dioxide 20 L
BUN 18 H
Creatinine 0.9
Glucose 95
Calcium 9.0
Vital Signs:
Vital Signs
Temp Pulse Resp BP Pulse Ox
98.1 F 72 16 169/84 96
02/11/24 07:00 02/11/24 07:00 02/11/24 07:00 02/11/24 07:00 02/11/24 07:00
I&O
02/10/24 02/11/24 02/12/24
06:59 06:59 06:59
Intake Total 480 / 480 1140 / 1140
Balance 480 / 480 1140 / 1140
--- NOTE | 2024-02-11 10:00 | CM ---
Spoke with patients daughter Gabrielle Ibrahim [phone]
Discussed VN, chose [facility], referral placed via [facility].
PCP: [facility]- Jose HOOKS
Daughter will transport home.
Will discuss with VN in am possible visit Monday. updated.
Plan: d/c back to [facility] with [facility] when stable.
[2024-02-11] MEDS: NORVASC 5 MG PO (16:04)
--- NOTE | 2024-02-11 16:27 | W.PN.ID1 ---
Date of Service
Date of Service: February 11, 2024
Today's Communication
keflex
Assessment / Plan
# E. coli UTI and bacteremia
# Diarrhea
# Sepsis: fever, leukocytosis, bandemia
# GELACIO
- Repeat blood cx's no growth to date
-Renal ultrasound with severe right hydronephrosis. CT scan confirms severe hydronephrosis. Awaiting further input from Urology
- start keflex to complete 10 day course thorugh 02/05
- follow up with PCP
Chief Complaint
-: UTI and Bacteremia
Subjective / Review of Systems
afebrile
bp stable
tolerating current therapies
no new complaints
Vital Signs / Physical Exam
Vital Signs
Vital Signs
Temp Pulse Resp BP Pulse Ox
97.5 F 71 18 168/82 98
02/11/24 11:00 02/11/24 11:00 02/11/24 11:00 02/11/24 11:00 02/11/24 11:00
Physical Exam
Constitutional: No Acute Distress and Chronically Ill
Cardiovascular: Regular Rate
Pulmonary: Symmetric
Gastrointestinal: Non Distended
Skin: Negative Rash or Jaundice
Objective Data
Lab Data
Lab Results
02/10/24 07:03
02/11/24 05:34
PT 24.4 Sec (11.4-14.6) H 02/07/24 15:09
INR 2.17 02/07/24 15:09
Estimated Creat Clear 37 ml/min 02/11/24 05:34
Lactic Acid 1.7 mmol/L (0.7-2.0) 02/08/24 00:25
Total Bilirubin 0.6 mg/dl (0.2-1.3) 02/09/24 07:44
AST 43 U/L (14-36) H 02/09/24 07:44
ALT 34 U/L (0-35) 02/09/24 07:44
Alkaline Phosphatase 112 U/L (38-126) 02/09/24 07:44
Most recent labs reviewed.
Micro Results:
02/08/24 09:30 Blood Culture - Preliminary
Blood/Venous No Growth in 72 hours- Final report to follow
02/09/24 07:44 Blood Culture - Preliminary
Blood/Venous No Growth in 48 hours- Final report to follow
02/07/24 16:24 Blood Culture - Final
Blood/Venous Escherichia coli
Gram Stain - Final
02/07/24 16:24 Blood Culture - Final
Blood/Venous Escherichia coli
Gram Stain - Final
02/07/24 17:20 Salmonella/Shigella Culture - Final
Feces/Stool No Salmonella, Shigella, Aeromonas or Plesiomonas species
isolated.
Campylobacter Culture - Final
No Campylobacter species isolated.
Shiga Toxin Test - Final
No E. coli Shiga Toxin 1 or 2 detected.
02/07/24 16:24 Urine Culture - Final
Urine Escherichia coli
02/07/24 17:20 C. difficile GDH Antigen & Toxins - Final
Feces/Stool Negative for toxigenic C.difficile
- Final
Negative for Norovirus GI and GII.
02/07/24 16:24 Influenza Types A & B ([place]) - Final
Nasal Swab Negative for Influenza A & B, NAAT
Negative results must be combined with clinical observations
and patient history.
Nucleic Acid Amplification test (NAAT)performed on the
[employer] platform.
[2024-02-12] VITALS (7 sets, daily range): BP systolic 135–179; BP diastolic 62–94; PULSE 83
--- NOTE | 2024-02-12 08:13 | W.PN.HOSP.TC ---
Today's Communication/Plan
-
Please see below
Assessment / Plan
Assessment / Plan
Physical Exam
General: Not in acute distress
HEENT: Normocephalic. Atraumatic
Respiratory: Clear to Auscultation Bilaterally
Cardiac: S1/S2 and Regular Rhythm
GI: Soft, Non Tender, Non Distended and Normal Bowel Sounds
Musculoskeletal: No Cyanosis and No Edema
Skin: Warm. Dry.
Neuro: Nonfocal/grossly intact
Psych: Calm

Assessment/Plan
#Sepsis POA secondary to bacteremia and urinary tract infection
#E. coli UTI and bacteremia
No fevers
mild loose stools, on PRN Imodium. Probiotic. C diff negative
Leukocytosis has resolved.
-UA shows greater than 100 WBC, positive nitrates, leukocyte esterase
-Lactic acid 4.8, continue to trend down
-repeat blood culture �no growth to date
Renal US Moderate to severe hydronephrosis on the right
- ok for diet.
- no need for more IV fluids
-s/p Zosyn. started IV Rocephin 02/07 , now on Keflex through 02/16.
- Appreciate ID input
-Continue with Keflex, to complete 10 day course
# Hypokalemia at 3.4, replace
-Resumed patient's home Lisinopril
#Diarrhea
-Consulted GI, recommendations appreciated
-Low-fat lactose-free diet
-Patient/patient's daughter does not want to take Imodium.
-So as per GI, trial of questran
-GI will check stool elastase/celiac panel/ TSH
-Follow-up with Dr. Gasca as outpatient on discharge
# Moderate to severe hydronephrosis on the right
She denies flank pain.
CT confirmed hydronephrosis. No definite mass or calcification identified to explain the etiology
d/w urology, seems chronic process. Plan to treat the infection and OP follow up.
Appreciate urology input
# Acute kidney injury likely prerenal
Creatinine now down to 0.8
Creatinine 1.7 on admission,s/p IVF,
Resumed Lisinopril
# Hypokalemia secondary to GI losses
-Replete potassium
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
-Hemoglobin stable at 8 from recent admission
Severe iron deficiency anemia
-Continue iron supplement
Borderline B12 levels
-Continue B12
Paroxysmal atrial fibrillation with pacemaker
-Continue Eliquis
-Continue sotalol
History of SVT
-Continue Verapamil
Essential hypertension
-Resumed patient's Lisinopril
-Amlodipine added this admission -- but patient is on home Verapamil, so will hold Amlodipine and resume Verapamil
History of spinal fusion/chronic back pain sciatica/arthritis
DNR/DNI
DVT prophylaxis�Eliquis
Anticipated Discharge: > 48 hours
Subjective/Interval History
-
Date of Service: February 12, 2024
Patient was seen and examined. She reports another significant episode of diarrhea this morning. She denied any abdominal pain.
Objective Data
-
Labs:
Laboratory Results
02/12/24
06:00
WBC Pending
Hgb Pending
Hct Pending
Plt Count Pending
Sodium Pending
Potassium Pending
Chloride Pending
Carbon Dioxide Pending
BUN Pending
Creatinine Pending
Glucose Pending
Calcium Pending
Vital Signs:
Vital Signs
Temp Pulse Resp BP Pulse Ox
97.3 F 76 20 156/94 97
02/12/24 03:00 02/12/24 03:00 02/12/24 03:00 02/12/24 03:00 02/12/24 03:00
I&O
02/11/24 02/12/24 02/13/24
06:59 06:59 06:59
Intake Total 1140 / 1140 1800 / 1800
Balance 1140 / 1140 1800 / 1800
[2024-02-12] MEDS: KEFLEX 500 MG PO ×4 (09:00→21:54)
[2024-02-12] MEDS: ELIQUIS 2.5 MG PO ×2 (09:00→20:37)
[2024-02-12] MEDS: VISBIOME 2 CAP PO (09:00)
[2024-02-12] MEDS: VITAMIN B-12 1000 MCG PO (09:00)
[2024-02-12] MEDS: NORVASC 5 MG PO (09:00)
[2024-02-12] MEDS: BETAPACE 80 MG PO ×2 (09:00→20:36)
[2024-02-12] MEDS: FEOSOL 325 MG PO (09:01)
[2024-02-12 09:27] LABS: Hematocrit 30.6 % (37.0-47.0); Hemoglobin 9.7 g/dL (12.0-16.0); Mean Corp Hgb Conc. 31.7 g/dL (33.0-37.0); Mean Corpuscular Hgb 24.7 pg (27.0-31.0); Mean Corpuscular Volume 77.9 fL (81.0-99.0); Platelet Count 169 10^3/uL (130-400); Red Blood Cell Count 3.93 10^6/uL (4.20-5.40); Red Cell Dist. Width 31.3 % (11.5-14.5); White Blood Cell Count 6.3 10^3/uL (4.8-10.8)
--- NOTE | 2024-02-12 09:31 | CM ---
Addendum entered by Helen Covington 02/12/24 10:32:
Patient with loose stools today. D/C on hold.
Patient agreeable to VN.
Original Note:
TC from [facility], thy do not accept patients insurance.
Left VM for patients daughter Gabrielle, await TCB.
Plan: home with VN when stable.
[2024-02-12] MEDS: IMODIUM 2 MG PO (09:41)
[2024-02-12 10:12] LABS: Blood Urea Nitrogen 16 mg/dl (7-17); Calcium 9.7 mg/dl (8.4-10.2); Carbon Dioxide 23 mmol/L (22-30); Chloride 105 mmol/L (98-107); Estimated Creatinine Clearance 42 ml/min; Glucose 130 mg/dl (70-99); Potassium 3.6 mmol/L (3.5-5.1); Sodium 138 mmol/L (135-145); eGFR > 60.00
--- NOTE | 2024-02-12 10:43 | PTCARENOTE ---
OK to remove Pt from contact precautions per Infection Control.
--- NOTE | 2024-02-12 12:35 | VNURNOTE ---
Home Health Liaison met with patient at 1200 to discuss [facility] nurse/therapy, visits, schedule and homebound status. Patient is agreeable and understands that visits at home will be 2-3 x per week to assess and teach medical management.
Call to patient's daughter Gabrielle to discuss above. Private caregivers discussed and list provided by email.
[facility] brochure provided with contact information. Patient is aware that [facility] will contact her for start of care in 1-2 days after discharge from .
[facility] referral completed in [facility].
--- NOTE | 2024-02-12 15:58 | W.PN.ID1 ---
Date of Service
Date of Service: February 12, 2024
Today's Communication
Continue antibiotics per
Assessment / Plan
# E. coli UTI and bacteremia
# Diarrhea
# Sepsis: fever, leukocytosis, bandemia
# GELACIO
- Repeat blood cx's no growth to date
-Renal ultrasound with severe right hydronephrosis. CT scan confirms severe hydronephrosis. Outpatient follow-up with urology
-Continue with keflex, to complete 10 day course through 02/05
- follow up with PCP
Chief Complaint
-: UTI and Bacteremia
Subjective / Review of Systems
Review of Systems: No Fever, No Chills and Diarrhea
Vital Signs / Physical Exam
Vital Signs
Vital Signs
Temp Pulse Resp BP Pulse Ox
97.5 F 71 18 163/82 99
02/12/24 12:02 02/12/24 12:02 02/12/24 12:02 02/12/24 12:02 02/12/24 12:02
Physical Exam
Constitutional: No Acute Distress, Comfortable, Chronically Ill and Non-toxic
Cardiovascular: S1/S2; Negative S3/S4
Pulmonary: Non Labored
Gastrointestinal: Soft, Non Tender and Non Distended
Neurological: Awake and Alert
Psychological: Calm
Objective Data
Lab Data
Lab Results
02/12/24 09:04
02/12/24 09:04
PT 24.4 Sec (11.4-14.6) H 02/07/24 15:09
INR 2.17 02/07/24 15:09
Estimated Creat Clear 42 ml/min 02/12/24 09:04
Lactic Acid 1.7 mmol/L (0.7-2.0) 02/08/24 00:25
Total Bilirubin 0.6 mg/dl (0.2-1.3) 02/09/24 07:44
AST 43 U/L (14-36) H 02/09/24 07:44
ALT 34 U/L (0-35) 02/09/24 07:44
Alkaline Phosphatase 112 U/L (38-126) 02/09/24 07:44
Most recent labs reviewed.
Micro Results:
02/08/24 09:30 Blood Culture - Preliminary
Blood/Venous No Growth in 4 days- Final report to follow
02/09/24 07:44 Blood Culture - Preliminary
Blood/Venous No Growth in 72 hours- Final report to follow
02/07/24 16:24 Blood Culture - Final
Blood/Venous Escherichia coli
Gram Stain - Final
02/07/24 16:24 Blood Culture - Final
Blood/Venous Escherichia coli
Gram Stain - Final
02/07/24 17:20 Salmonella/Shigella Culture - Final
Feces/Stool No Salmonella, Shigella, Aeromonas or Plesiomonas species
isolated.
Campylobacter Culture - Final
No Campylobacter species isolated.
Shiga Toxin Test - Final
No E. coli Shiga Toxin 1 or 2 detected.
02/07/24 16:24 Urine Culture - Final
Urine Escherichia coli
02/07/24 17:20 C. difficile GDH Antigen & Toxins - Final
Feces/Stool Negative for toxigenic C.difficile
- Final
Negative for Norovirus GI and GII.
02/07/24 16:24 Influenza Types A & B ([place]) - Final
Nasal Swab Negative for Influenza A & B, NAAT
Negative results must be combined with clinical observations
and patient history.
Nucleic Acid Amplification test (NAAT)performed on the
[employer] platform.
--- NOTE | 2024-02-12 16:43 | CON.GI ---
Consultation
-
Date/Time Consultation Requested: 02/12/2024
Date/Time Consultation Performed: 02/11/2022
Requesting Provider: Hospitalist
Performing Provider: Katey KNOX
Reason for Consultation: Diarrhea
Medical History
Chief Complaint / HPI
Chief Complaint: Diarrhea
History of Present Illness:
88-year-old female with past medical history of paroxysmal A-fib on eliquis, SVT, hypertension, anemia admitted on 02/07/2024 with watery diarrhea/vomiting. Noted to have UTI sepsis ('urine/blood culture growing E. coli) at that time and was
evaluated by ID and was started on IV antibiotics. Patient was evaluated by GI team when she was admitted last time 01/27/2024 for anemia. She underwent EGD/colonoscopy at that time. Noted to have AVMs in the colon s/p APC at that time. As per
patient since she was discharged 01/31/2024 she has been having intermittent diarrhea. On occasions sudden urgency to have bowel movement after meals. Denies any blood with stools. She was given Imodium last Monday and did not have any bowel
movement Monday or Monday. Then Imodium was discontinued then this morning she had a large semiformed stool after eating breakfast /drinking coffee.
She claims she had problems with loose stools in the past as well and was taking Imodium.
Past Medical History
Past Medical History: Other (Afib PPM HTN diverticulosis hemorrhoids colonic angiectasia chronic back pain)
Past Surgical History: Other (Spinal fusion Hysterectomy)
Social History
Tobacco: Non-Smoker
Alcohol: None
Allergies / Home Medications
Allergy/AdvReac Type Severity Reaction Status Date / Time
NSAIDS (Non-Steroidal Allergy high bp Verified 04/10/23 06:15
Anti-Inflamma
oxycodone Allergy Vomiting Verified 04/10/23 06:15
rofecoxib Allergy high bld Verified 04/10/23 06:15
pressure
zolpidem tartrate Allergy hallucinati Verified 04/10/23 06:15
[From [facility]] ons
Medication Instructions Recorded
sotalol 80 mg tablet 80 mg PO BID Arrhythmia 08/08/17
apixaban 5 mg tablet (Eliquis) 5 mg PO BID Blood clot 10/01/20
prevention/tx
cyanocobalamin (vitamin B-12) 1,000 mcg PO DAILY Supplement #0 01/31/24
1,000 mcg tablet tabs
lisinopril 20 mg tablet 20 mg PO DAILY Blood pressure #0 01/31/24
tabs
verapamil 240 mg tablet,extended 240 mg PO NOON Arrhythmia #0 tabs 01/31/24
release
acetaminophen 500 mg tablet 1,000 mg PO DAILYPRN PRN mild pain 02/07/24
(Tylenol Extra Strength)
ferrous sulfate 325 mg (65 mg 325 mg PO Q48H@0800 anemia 02/07/24
iron) tablet,delayed release
Review of Systems
-
All other systems: A 12 pt ROS was Negative except as stated above in HPI
Vital Signs
Temp Pulse Resp BP Pulse Ox
97.5 F 71 18 163/82 99
02/12/24 12:02 02/12/24 12:02 02/12/24 12:02 02/12/24 12:02 02/12/24 12:02
Physical Exam
Exam
General: Well Developed and No Apparent Distress
Respiratory: Clear
Cardiac: S1/S2
GI: Soft, Non Tender, Non Distended and Normal Bowel Sounds
Neuro: AO x 3
Results
WBC 6.3 10^3/uL (4.8-10.8) 02/12/24 09:04
Hgb 9.7 g/dL (12.0-16.0) L 02/12/24 09:04
Hct 30.6 % (37.0-47.0) L 02/12/24 09:04
MCV 77.9 fL (81.0-99.0) L 02/12/24 09:04
Plt Count 169 10^3/uL (130-400) D 02/12/24 09:04
Absolute Neuts (auto) 10.3 10^3/uL (1.4-6.5) H 02/07/24 15:09
PT 24.4 Sec (11.4-14.6) H 02/07/24 15:09
INR 2.17 02/07/24 15:09
Sodium 138 mmol/L (135-145) 02/12/24 09:04
Potassium 3.6 mmol/L (3.5-5.1) 02/12/24 09:04
Chloride 105 mmol/L (98-107) 02/12/24 09:04
Carbon Dioxide 23 mmol/L (22-30) 02/12/24 09:04
BUN 16 mg/dl (7-17) 02/12/24 09:04
Creatinine 0.8 mg/dL (0.6-1.0) 02/12/24 09:04
Calcium 9.7 mg/dl (8.4-10.2) 02/12/24 09:04
Total Bilirubin 0.6 mg/dl (0.2-1.3) 02/09/24 07:44
AST 43 U/L (14-36) H 02/09/24 07:44
ALT 34 U/L (0-35) 02/09/24 07:44
Alkaline Phosphatase 112 U/L (38-126) 02/09/24 07:44
Diagnostic Image Results:
Prior GI Procedures:
01/29/2024 colonoscopy: Hemorrhoids found on perianal exam. Erythematous mucosa in the rectum. Diverticulosis in the sigmoid colon. 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
Treated with argon plasma coagulation (APC). 3 Clips were placed on one angioectasia for marking, then for hemostasis.
01/29/2024 EGD: No significant findings, however, a scar - possibly a healed ulcer in the antrum. Biopsied. 3 cm hiatal hernia. No gross lesions in the entire esophagus. Scar in the gastric antrum. Biopsied Normal examined duodenum.
Assessment / Plan
-
38-year-old female with past medical history of A-fib on Eliquis, hypertension, dyslipidemia, anemia admitted with UTI / sepsis. She was evaluated recently by GI for anemia and underwent EGD/colonoscopy with Dr. Gasca 01/29/2024. Noted to have
colonic AVMs s/p APC. She has been having intermittent diarrhea which got worsen over the last few week. Stool testing negative for infection. Symptomatic improvement with Imodium.
-- Chronic diarrhea. Worsening over the last few weeks. stool studies negative for infection. Recent colonoscopy not suggestive of any IBD. Possible DD; IBS D versus postinfectious versus antibiotic induced etc.
-- UTI/sepsis/E. coli bacteremia -initially treated with IV antibiotics currently on Keflex
-- Right hydronephrosis. Seen by urology
-- Anemia
plan
-Low-fat lactose-free diet
-Patient/patient's daughter does not want to take Imodium. Trial of questran
-Will check stool elastase/celiac panel/ TSH
-Will recommend outpatient GI follow-up. Patient would like to follow-up with Dr. Gasca as outpatient on discharge
Total Time Spent with Patient (in minutes): 55
-
-
Thank you for consultation and allowing me to participate in the patient's care. Please call the donor technician GI physician during the after hours with any questions or concerns.
[2024-02-12] MEDS: QUESTRAN LIGHT/PREVALITE 4 GRAMS PO (17:21)
[2024-02-12] MEDS: ZESTRIL 20 MG PO (18:00)
[2024-02-12] MEDS: APRESOLINE 5 MG IV (20:37)
[2024-02-13 03:00] VITALS: BP 145/66
[2024-02-13 07:25] VITALS: BP 131/69
[2024-02-13] MEDS: QUESTRAN LIGHT/PREVALITE 4 GRAMS PO (09:00)
[2024-02-13] MEDS: VISBIOME 2 CAP PO (09:00)
[2024-02-13] MEDS: KEFLEX 500 MG PO ×2 (09:00→13:22)
[2024-02-13] MEDS: ZESTRIL 20 MG PO (09:00)
[2024-02-13] MEDS: BETAPACE 80 MG PO (09:00)
[2024-02-13] MEDS: ELIQUIS 2.5 MG PO (09:00)
[2024-02-13] MEDS: VITAMIN B-12 1000 MCG PO (09:01)
[2024-02-13 10:40] LABS: Hematocrit 31.3 % (37.0-47.0); Hemoglobin 9.8 g/dL (12.0-16.0); Mean Corp Hgb Conc. 31.3 g/dL (33.0-37.0); Mean Corpuscular Hgb 24.6 pg (27.0-31.0); Mean Corpuscular Volume 78.6 fL (81.0-99.0); Mean Platelet Volume 10.2 fL (7.4-10.4); Platelet Count 226 10^3/uL (130-400); Red Blood Cell Count 3.98 10^6/uL (4.20-5.40); Red Cell Dist. Width 31.5 % (11.5-14.5); White Blood Cell Count 5.8 10^3/uL (4.8-10.8)
[2024-02-13 10:44] LABS: ALT (SGPT) 20 U/L (0-35); AST (SGOT) 22 U/L (14-36); Albumin 3.4 g/dl (3.5-5.0); Alkaline Phosphatase 111 U/L (38-126); Blood Urea Nitrogen 18 mg/dl (7-17); Calcium 9.4 mg/dl (8.4-10.2); Carbon Dioxide 23 mmol/L (22-30); Chloride 107 mmol/L (98-107); Estimated Creatinine Clearance 37 ml/min; Glucose 120 mg/dl (70-99); Potassium 3.6 mmol/L (3.5-5.1); Sodium 137 mmol/L (135-145); Total Bilirubin 0.7 mg/dl (0.2-1.3); Total Protein 6.2 g/dl (6.3-8.2); eGFR > 60.00
[2024-02-13 11:20] VITALS: BP 129/67
--- NOTE | 2024-02-13 12:49 | W.PN.ID1 ---
Date of Service
Date of Service: February 13, 2024
Today's Communication
Continue with cephalexin po 500mg qid through 02/20/24.
Assessment / Plan
# E. coli UTI and bacteremia
# Diarrhea
# Sepsis: fever, leukocytosis, bandemia
# GELACIO
- Repeat blood cx's no growth to date
-Renal ultrasound with severe right hydronephrosis. CT scan confirms severe hydronephrosis. Outpatient follow-up with urology.
-Continue with cephalexin 500mg qid through 02/20/24.
- follow up with PCP
Chief Complaint
-: UTI and Bacteremia
Subjective / Review of Systems
No more diarrhea. Feels better.
Vital Signs / Physical Exam
Vital Signs
Vital Signs
Temp Pulse Resp BP Pulse Ox
97.5 F 72 16 129/67 98
02/13/24 11:20 02/13/24 11:20 02/13/24 11:20 02/13/24 11:20 02/13/24 11:20
Physical Exam
Constitutional: No Acute Distress and Comfortable
Gastrointestinal: Soft, Non Tender and Non Distended
Genito-Urinary: Negative CVA Tenderness
Neurological: AO x 3
Objective Data
Lab Data
Lab Results
02/13/24 09:58
02/13/24 09:58
PT 24.4 Sec (11.4-14.6) H 02/07/24 15:09
INR 2.17 02/07/24 15:09
Estimated Creat Clear 37 ml/min 02/13/24 09:58
Lactic Acid 1.7 mmol/L (0.7-2.0) 02/08/24 00:25
Total Bilirubin 0.7 mg/dl (0.2-1.3) 02/13/24 09:58
AST 22 U/L (14-36) 02/13/24 09:58
ALT 20 U/L (0-35) 02/13/24 09:58
Alkaline Phosphatase 111 U/L (38-126) 02/13/24 09:58
Most recent labs reviewed.
Micro Results:
02/08/24 09:30 Blood Culture - Final
Blood/Venous No Growth - Final Report
02/09/24 07:44 Blood Culture - Preliminary
Blood/Venous No Growth in 4 days- Final report to follow
02/07/24 16:24 Blood Culture - Final
Blood/Venous Escherichia coli
Gram Stain - Final
02/07/24 16:24 Blood Culture - Final
Blood/Venous Escherichia coli
Gram Stain - Final
02/07/24 17:20 Salmonella/Shigella Culture - Final
Feces/Stool No Salmonella, Shigella, Aeromonas or Plesiomonas species
isolated.
Campylobacter Culture - Final
No Campylobacter species isolated.
Shiga Toxin Test - Final
No E. coli Shiga Toxin 1 or 2 detected.
02/07/24 16:24 Urine Culture - Final
Urine Escherichia coli
02/07/24 17:20 C. difficile GDH Antigen & Toxins - Final
Feces/Stool Negative for toxigenic C.difficile
- Final
Negative for Norovirus GI and GII.
02/07/24 16:24 Influenza Types A & B ([place]) - Final
Nasal Swab Negative for Influenza A & B, NAAT
Negative results must be combined with clinical observations
and patient history.
Nucleic Acid Amplification test (NAAT)performed on the
[employer] platform.
[2024-02-13] MEDS: CALAN EXTENDED RELEASE 240 MG PO (13:22)
[2024-02-13 15:10] VITALS: BP 130/67
--- NOTE | 2024-02-13 15:22 | W.PN.HOSP.TC ---
Today's Communication/Plan
-
Discharge today
Assessment / Plan
Assessment / Plan
Physical Exam
General: Not in acute distress
HEENT: Normocephalic. Atraumatic
Respiratory: Clear to Auscultation Bilaterally
Cardiac: S1/S2 and Regular Rhythm
GI: Soft, Non Tender, Non Distended and Normal Bowel Sounds
Musculoskeletal: No Cyanosis and No Edema
Skin: Warm. Dry.
Neuro: Nonfocal/grossly intact
Psych: Calm

Assessment/Plan
#Sepsis POA secondary to bacteremia and urinary tract infection
#E. coli UTI and bacteremia
#Leukocytosis - RESOLVED
No fevers
mild loose stools, on PRN Imodium. Probiotic. C diff negative
Leukocytosis has resolved.
-UA showed greater than 100 WBC, positive nitrates, leukocyte esterase
-repeat blood culture �no growth to date
Renal US Moderate to severe hydronephrosis on the right
- ok for diet.
- no need for more IV fluids
-s/p Zosyn. started IV Rocephin 02/07 , now on cephalexin po 500mg qid through 02/20/24 (30 more doses of 500 mg).
- Appreciate ID input
# Hypokalemia - RESOLVED
-Resumed patient's home Lisinopril
#Diarrhea
-Consulted GI, recommendations appreciated
-Low-fat lactose-free diet
-Patient/patient's daughter does not want to take Imodium.
-So as per GI, trial of questran
-GI will check stool pancreatic elastase/celiac panel/ TSH
-Follow-up with Dr. Gasca as outpatient on discharge
# Moderate to severe hydronephrosis on the right
She denies flank pain.
CT confirmed hydronephrosis. No definite mass or calcification identified to explain the etiology
d/w urology, seems chronic process. Plan to treat the infection and OP follow up with Dr. Amaro
Appreciate urology input
# Acute kidney injury - RESOLVED - likely prerenal
Creatinine now down to normal
Creatinine 1.7 on admission,s/p IVF,
Resumed Lisinopril
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
-Hemoglobin stable
Severe iron deficiency anemia
-Continue iron supplement
Borderline B12 levels
-Continue B12
Paroxysmal atrial fibrillation with pacemaker
-Continue Eliquis
-Continue sotalol
History of SVT
-Continue Verapamil
-Follow-up closely with Dr. Shaheen Hillman
Essential hypertension
-Resumed patient's Lisinopril
-Continue patient's Verapamil
History of spinal fusion/chronic back pain sciatica/arthritis
DNR/DNI
DVT prophylaxis�Eliquis
More than 30 minutes spent in discharge including
Final examination of the patient
Summarizing hospital stay
Instructions for continuing care to all relevant caregivers
Preparation of discharge records, prescriptions, and referral forms
Total time spent (in minutes): 35
Anticipated Discharge: Today
Subjective/Interval History
-
Date of Service: February 13, 2024
Patient was seen and examined. She denied any new symptoms or complaints, and mentioned that she is feeling better, and her diarrhea has improved.
Objective Data
-
Labs:
Laboratory Results
02/13/24
09:58
WBC 5.8
Hgb 9.8 L
Hct 31.3 L
Plt Count 226 D
Sodium 137
Potassium 3.6
Chloride 107
Carbon Dioxide 23
BUN 18 H
Creatinine 0.9
Glucose 120 H
Calcium 9.4
Total Bilirubin 0.7
AST 22
ALT 20
Alkaline Phosphatase 111
Vital Signs:
Vital Signs
Temp Pulse Resp BP Pulse Ox
97.5 F 72 16 129/67 98
02/13/24 11:20 02/13/24 11:20 02/13/24 11:20 02/13/24 11:20 02/13/24 11:20
I&O
02/12/24 02/13/24 02/14/24
06:59 06:59 06:59
Intake Total 1800 / 1800 1320 / 1320
Balance 1800 / 1800 1320 / 1320
--- NOTE | 2024-02-13 15:45 | CM ---
Patient seen bedside.
IMM completed.
Plan: d/c home with VN
--- NOTE | 2024-02-13 15:54 | W.DS.TRANS ---
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
-
Discharge Instructions:
Sleep Apnea Risk Low
Discharge Diagnosis/Procedures Urinary tract infection.
Sepsis/gram-negative bacteremia, resolved.
Right-sided moderate to severe hydronephrosis
Acute kidney injury, resolved
Hypokalemia, resolved
Bilateral pleural effusions right greater than
left.
Pulmonary Nodule
Hypodense lesions in the liver
Echogenic focus and hypodense lesion in the left
kidney
Diet Other diet
Additional Diets Low-fat lactose-free diet
Activity As tolerated
Other Services VN
Instructions:
Stand-Alone Forms:
Changes to Home Medications: Yes
Discharge Medications:
DC Medications w/original date entered in [facility]
sotalol 80 mg tablet 80 mg PO BID Arrhythmia 08/08/17
cyanocobalamin (vitamin B-12) 1,000 mcg tablet 1,000 mcg PO DAILY Supplement #0 tabs 01/31/24
lisinopril 20 mg tablet 20 mg PO DAILY Blood pressure #0 tabs 01/31/24
verapamil 240 mg tablet,extended release 240 mg PO NOON Arrhythmia #0 tabs 01/31/24
acetaminophen 500 mg tablet (Tylenol Extra Strength) 1,000 mg PO DAILYPRN PRN mild pain 02/07/24
ferrous sulfate 325 mg (65 mg iron) tablet,delayed release 325 mg PO Q48H@0800 anemia 02/07/24
Lactobac/Bifidobac [Visbiome] 2 cap PO DAILY #60 caps 02/13/24
apixaban 5 mg tablet (Eliquis) 2.5 mg PO BID Blood clot prevention/tx #60 tabs 02/13/24
cephalexin 500 mg capsule 500 mg PO QID #30 caps 02/13/24
cholestyramine-aspartame 4 gram oral powder for susp in a packet (Cholestyramine Light) 4 g PO DAILY #60 ea 02/13/24
Home Medication Changes
Cephalexin, Cholestyramine and Visbiome are new medications
Eliquis has been changed to 2.5 mg twice per day (dose reduced due to age and weight)
Pending Results: Yes
Additional Pending Results:
Stool elastase, celiac studies and final results of microbiology studies
Total time spent discharging patient (in min): 35
--- NOTE | 2024-02-13 16:45 | PTCARENOTE ---
Pt DC'd to [facility]. Pt given DC instructions and verbalized understanding. Pt transport by daughter.
[2024-02-14 14:23] LABS: tTG IgA Antibody 6.8 EU/ml (0-19); tTG IgG Antibody 9.8 EU/ml (0-19)
[2024-02-15 00:06] LABS: IgA 174 mg/dl (70-400)
[2024-02-16 08:00] LABS: Endomysial IgA Antibody Titer <1:10 (<1:10)
--- NOTE | 2024-02-16 12:22 | W.DCSUMMARY ---
Discharge Summary
Discharge Data
Date of Admission: 02/07/24
Date of Discharge: 02/13/24
Total time spent discharging patient (in min): 35
-
Pending Results: Yes
Additional Pending Results:
Stool elastase, celiac studies and final results of microbiology studies
Hospital Course
88-year-old female with past medical history of paroxysmal atrial fibrillation with pacemaker, SVT, hypertension, anemia, recent gastrointestinal bleeding/severe symptomatic anemia needing blood transfusions, colonic angiectasia, diverticulosis,
hemorrhoids, spinal fusion/chronic back pain, presented with chills and generalized weakness, as well as nonbloody watery diarrhea and vomiting. Patient was started on Zosyn for a suspected urinary tract infection. Patient was found to have a E.
coli urinary tract infection and bacteremia, and the Zosyn antibiotic was changed to Ceftriaxone, which was later able to be switched to oral Cephalexin. Imaging studies showed severe right-sided hydronephrosis. Urology was consulted and they
mentioned that given patient's improvement in infectious signs and renal function, they would not recommend acute intervention but if there was a recurrence of fevers or patient clinically worsened, then would place a stent or nephrostomy. Urology
also recommended outpatient follow-up of the hydronephrosis. Patient's blood pressure medicines were held due to acute kidney injury and low blood pressures earlier on in the hospitalization, but later they were able to be restarted when her blood
pressures improved. Gastroenterology was consulted regarding patient's diarrhea and they recommended a trial of Questran. Additional tests like stool elastase and celiac studies were ordered, all of which would need to be followed-up outpatient.
Dietary changes were recommended as below. Patient was also found to have asymptomatic pleural effusions, case was discussed with on-call assurance manager, and it was determined that she would need to follow-up closely with pulmonary outpatient for
further evaluation/tests/procedures.
Discharge Plan
-
Patient Disposition: Home with Home Care
Discharge Diagnosis/Procedures: Urinary tract infection.
Sepsis/gram-negative bacteremia, resolved.
Right-sided moderate to severe hydronephrosis
Acute kidney injury, resolved
Hypokalemia, resolved
Bilateral pleural effusions right greater than left.
Pulmonary Nodule
Hypodense lesions in the liver
Echogenic focus and hypodense lesion in the left kidney
Diet: Other diet
Additional Diets: Low-fat lactose-free diet
Activity: As tolerated
Other Services: VN
Activity Restrictions/Additional Instructions:
Follow-up with your primary care provider in 1 week.
You have asymptomatic bilateral pleural effusions on imaging done in the hospital - which may need to be drained -- discuss these pleural effusions with your primary care provider in the next 1 to 2 days.
[facility]monary office on [address] [facility] in [place] has been notified and they will arrange for possible pleural fluid drainage for your pleural effusions.
Instructions: Urinary tract infections in adults, Pleural effusion, Urinary Tract Infection, Adult (DC), Pulmonary nodule
Referrals:
Bertha Marie DO [Active] - in two to three days (Bilateral Pleural Effusions on Hospital Imaging. Pulmonary Nodule on Hospital Imaging.)
Osiel Amaro MD [Active] - in one to two weeks (Hospital follow-up)
Shaheen Hillman MD [Active] - in one to two weeks (Hospital Follow-up)
UNKNOWN - PT DOES,NOT KNOW [Unknown Provider] -
Idania Gasca DO [Active] - in one to two weeks (Hospital Follow-up, Diarrhea)
Additional Discharge Medication Instructions: Cephalexin, Cholestyramine and Visbiome are new medications
Eliquis has been changed to 2.5 mg twice per day (dose reduced due to your age and weight) -- the new Eliquis will be sent to your pharmacy
Prescriptions:
New
cephalexin 500 mg Capsule
500 mg PO QID Qty: 30 0RF
Rx Instructions:
To be taken through February 20, 2024
cholestyramine-aspartame [Cholestyramine Light] 4 gram Powder In Packet
4 g PO DAILY Qty: 60 1RF
Lactobac/Bifidobac [Visbiome]
2 cap PO DAILY Qty: 60 1RF
Continued
sotalol 80 MG tablet
80 mg PO BID
cyanocobalamin (vitamin B-12) 1,000 mcg Tablet
1,000 mcg PO DAILY Qty: 0 0RF
lisinopril 20 mg tablet
20 mg PO DAILY Qty: 0 0RF
verapamil 240 mg tablet extended release
240 mg PO NOON Qty: 0 0RF
acetaminophen [Tylenol Extra Strength] 500 mg Tablet
1,000 mg PO DAILYPRN PRN (Reason: mild pain)
ferrous sulfate 325 mg (65 mg iron) tablet,delayed release (DR/EC)
325 mg PO Q48H@0800
Changed
Eliquis 5 MG tablet
2.5 mg PO BID Qty: 60 1RF
Discharge Orders:
Discharge Patient (As Directed); Ordered 02/13/24
Ordered By: Juan Jose Coffman
Discharge Date and Time
Discharge Date/Time: 02/13/24 17:18
Print Language: SWEDISH
[2024-02-16 19:26] LABS: Pancreatic Elastase, Fecal >800 ug/g (>=100)
== END 2024-02-13 17:18 | disposition home health service (06) | DRG 871 ==
LOC: 4 WEST ACU 19:02
PROVIDERS: Emergency Medicine; Internal Medicine; ADMITTING PHYSICIAN Hospitalist; ATTENDING PHYSICIAN Hospitalist; CONSULT PHYSICIAN Internal Medicine Gastroenterology; CONSULT PHYSICIAN Urology; EMERGENCY PHYSICIAN Emergency Medicine; FAMILY PHYSICIAN Physician Assistant Medical; OTHER PHYSICIAN Internal Medicine Infectious Disease
DX: A41.50 Gram-negative sepsis, unspecified (principal); G92.8 Other toxic encephalopathy; I47.10 Supraventricular tachycardia, unspecified; N17.9 Acute kidney failure, unspecified; N39.0 Urinary tract infection, site not specified; N13.6 Pyonephrosis; J90 Pleural effusion, not elsewhere classified; E44.0 Moderate protein-calorie malnutrition; D50.9 Iron deficiency anemia, unspecified; M54.9 Dorsalgia, unspecified; G89.29 Other chronic pain; E87.6 Hypokalemia; I10 Essential (primary) hypertension; N26.1 Atrophy of kidney (terminal); K52.9 Noninfective gastroenteritis and colitis, unspecified; E78.5 Hyperlipidemia, unspecified; K44.9 Diaphragmatic hernia without obstruction or gangrene; I16.0 Hypertensive urgency; B96.20 Unspecified Escherichia coli [E. coli] as the cause of diseases classified elsewhere; I48.0 Paroxysmal atrial fibrillation; Z98.1 Arthrodesis status; Z66 Do not resuscitate; Z79.01 Long term (current) use of anticoagulants; Z11.52 Encounter for screening for COVID-19; Z88.6 Allergy status to analgesic agent; Z88.5 Allergy status to narcotic agent; Z88.8 Allergy status to other drugs, medicaments and biological substances; Z95.0 Presence of cardiac pacemaker; Z86.010 Personal history of colon polyps; Z87.19 Personal history of other diseases of the digestive system
CPT/HCPCS: 51701; 74176; 76775; 80048; 80053; 81003; 81015; 82653; 82784; 83516; 83605; 84443; 85025; 85027; 85610; 86231; 86850; 86900; 86901; 87040; 87045; 87046; 87077; 87086; 87149; 87186; 87205; 87324; 87427; 87449; 87502; 87798; 87811; 93005; 94760; 96361; 96374; 96375; 97162; 97166; 99285

== ENCOUNTER → 2024-02-26 11:14 | Outpatient (REF) | payer OTHER, SELFPAY | LOC: DHCBS HW 11:14 | PROVIDERS: ATTENDING PHYSICIAN Physician Assistant Medical; FAMILY PHYSICIAN Physician Assistant Medical | DX: I48.0 Paroxysmal atrial fibrillation (principal); R06.09 Other forms of dyspnea; R53.83 Other fatigue | CPT/HCPCS: 93306 ==

== ENCOUNTER → 2024-02-28 10:17 | Outpatient (REF) | payer OTHER, SELFPAY | LOC: RAD 10:17 | PROVIDERS: ATTENDING PHYSICIAN Urology; FAMILY PHYSICIAN Physician Assistant Medical | DX: N13.39 Other hydronephrosis (principal) | CPT/HCPCS: 78708; A9539 ==

== ENCOUNTER → 2024-03-18 13:37 | Outpatient (REF) | payer OTHER, SELFPAY | LOC: HWRAD 13:37 | PROVIDERS: ATTENDING PHYSICIAN Internal Medicine; FAMILY PHYSICIAN Physician Assistant Medical; OTHER PHYSICIAN Urology | DX: J90 Pleural effusion, not elsewhere classified (principal); N13.30 Unspecified hydronephrosis | CPT/HCPCS: 71250; 74176 ==

== ENCOUNTER 2025-04-21 20:20 | Inpatient (IN) | payer OTHER, SELFPAY ==
[2025-04-21] VITALS (8 sets, daily range): BP systolic 105–126; BP diastolic 50–96; BMI 22.5
[2025-04-21 15:16] LABS: % Basophils 0.3 % (0-2); % Eosinophils 0.1 % (0-6); % Immature Granulocytes 0.4 % (0-0.5); % Lymphocytes 8.5 % (20.5-51.1); % Monocytes 10.9 % (1.7-9.3); % Neutrophils 79.8 % (42.2-75.2); Absolute Lymphocytes 0.9 10^3/uL (1.2-3.4); Absolute Monocytes 1.1 10^3/uL (0.1-0.6); Absolute Neutrophils 8.1 10^3/uL (1.4-6.5); Hematocrit 37.1 % (37.0-47.0); Hemoglobin 12.2 g/dL (12.0-16.0); Mean Corp Hgb Conc. 32.9 g/dL (33.0-37.0); Mean Corpuscular Hgb 30.8 pg (27.0-31.0); Mean Corpuscular Volume 93.7 fL (81.0-99.0); Nucleated Red Blood Cells % 0 %; Red Blood Cell Count 3.96 10^6/uL (4.20-5.40); Red Cell Dist. Width 14.1 % (11.5-14.5); White Blood Cell Count 10.2 10^3/uL (4.8-10.8)
[2025-04-21 15:22] LABS: AST (SGOT) 22 U/L (14-36); Albumin 3.9 g/dl (3.5-5.0); Alkaline Phosphatase 79 U/L (38-126); Blood Urea Nitrogen 28 mg/dl (7-17); Calcium 8.9 mg/dl (8.4-10.2); Carbon Dioxide 23 mmol/L (22-30); Chloride 104 mmol/L (98-107); Glucose 126 mg/dl (70-99); Potassium 3.7 mmol/L (3.5-5.1); Sodium 136 mmol/L (135-145); Total Bilirubin 1.8 mg/dl (0.2-1.3); Total Protein 6.7 g/dl (6.3-8.2); eGFR 25.08
[2025-04-21 15:34] LABS: ALT (SGPT) 14 U/L (0-35)
[2025-04-21 15:52] LABS: Mean Platelet Volume 10.1 fL (7.4-10.4); Platelet Count 115 10^3/uL (130-400)
--- NOTE | 2025-04-21 17:45 | ED.GENMED ---
History of Present Illness
General
Chief Complaint: Blood Pressure Problem
Source: patient and family (daughter)
Exam Limitations: none
Time Seen by Provider: 04/21/25 17:30
Nursing documentation reviewed up to this point in time: agreed with
History of Present Illness
History of Present Illness:
Patient sent to ED by PCP for UTI, hypotension, weaknes and confusion. Patient states she developed urinary frequency appprox 3 days ago. Monday she felll while 'running to the bathroom'. Denies hitting her head. No LOC. Went to see PCP today
and found to be weak and confused, hypotensive. UA confirmed in office. Sent to ED for eval. Denies fever/chills.
Past History
Past History
ED Past Medical History: Arrthythmia (Atrial fibrillation, SVT), HTN and Other (Anemia, )
ED Past Surgical History: Cardiac (Ablation X 2 , pacemaker), Gynecological (Hysterectomy), Orthopedic (Spinal fussion,) and Other (Hemorrhoidectomy)
Social History
Tobacco: Non-smoker
Alcohol: Occasional
Personal:
Living: alone
Review of Systems
Review of Systems
Allergies reviewed?: Yes
All Other Systems: ROS reviewed and negative except as documented in HPI and ROS
Constitutional: Reports fatigue
EENT: Reports no symptoms
Respiratory: Reports no symptoms
Cardiac: Reports no symptoms
ABD/GI: Reports anorexia
: Reports frequency, incontinence and urgency
Musculoskeletal: Reports no symptoms
Skin: Reports no symptoms
Neurological: Reports weakness
Psychiatric: Reports no symptoms
Phy Exam
General Physical Exam
General Presentation: mild distress
General age: appears stated age
General Skin: warm and dry
General Habitus: elderly and frail
General Mental: alert
Cardiovascular Exam
Cardiovascular Exam: regular rate/rhythm and no edema
Gastrointestinal Exam
Gastrointestinal Exam: non tender and soft
Neurological Exam
Neurological Exam: alert, oriented x3, CN II-XII intact, no motor deficits, no sensory deficits and speech normal
Musculoskeletal Exam
Musculoskeletal Exam: full ROM
Skin Exam
Skin Exam: normal color, warm/dry and no rash
Psychiatric Exam
Psychiatric Exam: normal mood/affect
Course
Orders/Labs/Results
Orders:
Orders
04/21/25 14:51
Complete Blood Count/With Diff Urgent
Comprehensive Metabolic Panel Urgent
04/21/25 17:45
0.9% Sodium Chloride 1000 ml [Nss] 1,000 ml IV BOLUS
04/21/25 18:29
Urinalysis Reflex To Culture Urgent
Date Specimen was Collected: 04/21/25
Time Specimen was Collected: 18:28
Urine Microscopic Reflex Cult Urgent
Urine Culture Urgent
SEN Source: U
Specimen Description:
Date Specimen was Collected: 04/21/25
Time Specimen was Collected: 18:28
04/21/25 18:44
Acetaminophen [Tylenol] 650 mg .ROUTE .STK-MED ONE
04/21/25 18:45
Acetaminophen [Tylenol] 650 mg PO NOW STA
04/21/25 18:55
Cefepime HCl [Maxipime] 2,000 mg IV NOW STA
04/21/25 20:03
Sterile Water [Sterile Water For Injection] 10 ml .ROUTE .STK-MED ONE
04/21/25 20:07
Admit/Transfer Patient As Directed
Co-Sign Provider:
Level of Care: Inpatient admission
Assign to:: Medical/Surgical
Physician / Group: jaziel
Diagnosis: uti
Reason for Hospitalization: uti
Expected length of stay greater than two midnights?: Yes
ELOS- Estimated Length of Stay in days: 2
I certify the patient meets the requirements for IP care: Yes
PRN Pain Medication Management As Directed
May give lesser potent ordered pain med per pt: Yes
preference::
Protocol:: Medication orders for pain may be administered in a
manner that supports deferring to patient preference
when the pt is:
- Requesting an ordered lesser potent pain medication.
Least to most potent pain medications are defined
as: acetaminophen < NSAID < tramadol < opioids
(morphine, oxycodone, hydromorphone).
- Requesting a lesser dose of the same medication IF
ORDERED.
- Requesting a less intrusive route of administration
if both routes are prescribed by the provider (PO <
IV).
04/21/25 20:08
Code Status As Directed
Resuscitation Status: Full Code
04/21/25 20:11
Code Status As Directed
Resuscitation Status: Do not resuscitate
Reached after discussion with pt or family/Healthcare POA: Yes
DNR Bracelet Application ONCE
Abnormal Lab Results
04/21/25 04/21/25
14:51 18:29
RBC 3.96 L 10^6/uL
(4.20-5.40)
MCHC 32.9 L g/dL
(33.0-37.0)
Plt Count 115 L 10^3/uL
(130-400)
Absolute Neuts (auto) 8.1 H 10^3/uL
(1.4-6.5)
Absolute Lymphs (auto) 0.9 L 10^3/uL
(1.2-3.4)
Absolute Monos (auto) 1.1 H 10^3/uL
(0.1-0.6)
Neutrophils % 79.8 H %
(42.2-75.2)
Lymphocytes % 8.5 L %
(20.5-51.1)
Monocytes % 10.9 H %
(1.7-9.3)
BUN 28 H mg/dl
(7-17)
Creatinine 1.9 H mg/dL
(0.6-1.0)
Glucose 126 H mg/dl
(70-99)
Total Bilirubin 1.8 H mg/dl
(0.2-1.3)
Ur Occult Blood Reflex 4+ A
(Negative)
Urine Nitrite (Reflex) Positive A
(Negative)
Leukocyte Esterase Rfl 3+ A
(Negative)
Urine RBC 3-6 A /HPF
(0-2)
Urine WBC (Reflex) >100 A /HPF
(0-5)
Urine Bacteria (Reflex) Many A
(Negative)
Urine Albumin (Reflex) 3+ A
(Neg - Trace)
04/21/25 14:51
04/21/25 14:51
Vital Signs
Initial and Last Documented VS:
Initial Vital Signs
Temp Pulse Resp BP Pulse Ox
98 F 78 16 123/73 98
04/21/25 14:38 04/21/25 14:38 04/21/25 14:38 04/21/25 14:38 04/21/25 14:38
Last Documented Vital Signs
Temp Pulse Resp BP Pulse Ox
98 F 72 15 105/84 96
04/21/25 14:38 04/21/25 20:00 04/21/25 20:00 04/21/25 20:30 04/21/25 18:08
*Pulse Oximetry
Patient hypoxic: no
*Critical Care Note
Total Time (30-74mins, 75-104mins- exclusive of procedures): Not Applicable
ED Attending Note
-
Portions of this chart may have been created with voice recognition software.� Occasional wrong word or��sound alike� substitutions may have occurred due to the inherent limitations of voice recognition software.
Discharge Plan
Departure
Patient Disposition: Admit
Date of Disposition: 04/21/25
Time of Disposition: 18:57
Presentation/result/management discussed w/ accepting MD/DO: Hospitalist
Condition: Fair
Covid-19: Not Applicable
Discharge Problem:
Acute UTI, Dehydration, GELACIO (acute kidney injury)
Interventions
Interventions:
*Risk Screen - Suicide Last Done: 04/21/25 14:40
*Neglect/Abuse Screening Last Done: 04/21/25 14:40
ED- Cardiac Assessment Last Done: 04/21/25 19:49
ED- Neurological Assessment Last Done: 04/21/25 19:49
ED- Pulmonary Assessment Last Done: 04/21/25 19:49
[2025-04-21] MEDS: NSS 1000 IV ×2 (18:27→23:45)
[2025-04-21 18:38] LABS: Urine Albumin 3+ (Neg - Trace); Urine Bilirubin Negative (Negative); Urine Character Cloudy (Clear); Urine Color Yellow; Urine Glucose Negative (Negative); Urine Ketone Negative (Negative); Urine Leukocyte 3+ (Negative); Urine Nitrite Positive (Negative); Urine Occult Blood 4+ (Negative); Urine Urobilinogen Negative (Neg - 1+)
[2025-04-21] MEDS: TYLENOL 650 MG PO (18:46)
[2025-04-21 18:49] LABS: Urine Squamous Cell 0-2 /LPF (Few)
[2025-04-21 18:50] LABS: Urine Bacteria Many (Negative); Urine White Cell >100 /HPF (0-5)
[2025-04-21] MEDS: MAXIPIME 2000 MG IV (20:05)
--- NOTE | 2025-04-21 20:15 | HPS.HSE ---
Family Physician
-
Family Physician: Jose Gomez PA-C
Chief Complaint
-
weakness
History of Present Illness
89-year-old female past medical history of paroxysmal atrial fibrillation with pacemaker, SVT, hypertension, anemia, GI bleeding, severe anemia, colonic angiectasia, diverticulosis, hemorrhoids, spinal fusion/chronic back pain presenting with
urinary frequency 3 days ago. Patient has been having weakness and confusion. Went to see primary care physician was weak and confused and hypotensive. Urinalysis confirmed UTI.
She has been occasionally having diarrhea. Denies any abdominal pain or nausea or vomiting. Denies fevers or chills.
Denies smoking alcohol use.
Medical History
Past Medical History
Past Medical History: Reports Other (paroxysmal atrial fibrillation with pacemaker, SVT, hypertension, anemia, GI bleeding, severe anemia, colonic angiectasia, diverticulosis, hemorrhoids, spinal fusion/chronic back pain)
Past Surgical History: Reports Other ( Cardiac (Ablation X 2 , pacemaker), Gynecological (Hysterectomy), Orthopedic (Spinal fussion,) and Other (Hemorrhoidectomy))
Social History
Tobacco: Non-smoker
Alcohol: None
Drug: None
Family History
Family History: Not pertinent
Allergies / Home Medications
Allergies reflects when Allergies were last updated in [facility].
Home Medications with original date entered in [facility]
Allergy/Medication List:
Allergies
Allergy/AdvReac Type Severity Reaction Status Date / Time
NSAIDS (Non-Steroidal Allergy high bp Verified 04/10/23 06:15
Anti-Inflamma
oxycodone Allergy Vomiting Verified 04/10/23 06:15
rofecoxib Allergy high bld Verified 04/10/23 06:15
pressure
zolpidem tartrate (From Allergy hallucinati Verified 04/10/23 06:15
Ambien) ons
Home Medications
sotalol 80 mg tablet 40 mg PO BID Arrhythmia 08/08/17
acetaminophen 500 mg tablet (Tylenol Extra Strength) 1,000 mg PO DAILYPRN PRN mild pain 02/07/24
apixaban 2.5 mg tablet (Eliquis) 2.5 mg PO BID 04/21/25
cranberry fruit 450 mg tablet (cranberry) 450 mg PO QPM 04/21/25
ferrous sulfate 325 mg (65 mg iron) tablet 325 mg PO Q48H 04/21/25
lisinopril 10 mg tablet 10 mg PO DAILY 04/21/25
therapeutic multivitamin 1 tab PO DAILY 04/21/25
verapamil 240 mg tablet,extended release 120 mg PO QPM 04/21/25
verapamil 240 mg tablet,extended release 240 mg PO DAILY Arrhythmia 04/21/25
Review of Systems
-
History Source: Patient
A 12 point ROS was completed and negative except as noted: Yes
Constitutional: Reports No Symptoms
EENT: Reports No Symptoms
Respiratory: Reports No Symptoms
Cardiac: Reports No Symptoms
Abdomen/GI: Reports No Symptoms
: Reports See HPI
Musculoskeletal: Reports No Symptoms
Skin: Reports No Symptoms
Neurological: Reports No Symptoms
Endocrine: Reports No Symptoms
Hematologic/Lymphatic: Reports No Symptoms
Psych: Reports No Symptoms
Physical Exam
Vital Signs
Vital Signs
Temp Pulse Resp BP Pulse Ox
98 F 70 18 116/63 93
04/21/25 14:38 04/21/25 18:00 04/21/25 18:00 04/21/25 18:00 04/21/25 18:00
Physical Exam
General: Well Developed, Well Nourished and No Apparent Distress
HEENT: NormoCephalic, Moist mucous membranes and Atraumatic
Respiratory: Clear
Cardiac: S1/S2 and Regular Rhythm; No Murmur or Rub
GI: Soft, Non Tender, Non Distended and Normal Bowel Sounds; No Organomegaly
Rectal: Deferred by Provider
Musculoskeletal: No Clubbing, No Cyanosis and No Edema
Skin: No Rash
Neuro: Nonfocal/grossly intact
Laboratory Results
-
04/21/25 14:51
04/21/25 14:51
Laboratory Results
Total Bilirubin 1.8 mg/dl (0.2-1.3) H 04/21/25 14:51
AST 22 U/L (14-36) 04/21/25 14:51
ALT 14 U/L (0-35) 04/21/25 14:51
Alkaline Phosphatase 79 U/L (38-126) 04/21/25 14:51
Data Reviewed
-
Lab Data: Labs Reviewed by me
Old Records: Reviewed
Impression/Plan
-
IMPRESSION:
PLAN:
# Urinary tract infection
-UA greater than 100 WBC
- Check urine culture, blood cultures
- IV fluids
- Ceftriaxone
# Acute kidney injury
- IV fluids
Paroxysmal atrial fibrillation with pacemaker
- Continue Eliquis
- Continue verapamil
- Continue sotalol
History of SVT
Essential hypertension
- Hold lisinopril
Chronic anemia
History of GI bleeding
Colonic angiectasia
Diverticulosis
Spinal fusion/chronic back pain
DNR/DNI
DVT prophylaxis�heparin
Regular diet
[2025-04-22] VITALS (7 sets, daily range): BP systolic 92–145; BP diastolic 46–64; PULSE 71; BMI 21.8
[2025-04-22] MEDS: TYLENOL 650 MG PO ×2 (01:38→17:31)
[2025-04-22 04:56] LABS: % Basophils 0.2 % (0-2); % Eosinophils 0.2 % (0-6); % Immature Granulocytes 0.5 % (0-0.5); % Lymphocytes 6.7 % (20.5-51.1); % Monocytes 13.7 % (1.7-9.3); % Neutrophils 78.7 % (42.2-75.2); Absolute Lymphocytes 0.4 10^3/uL (1.2-3.4); Absolute Monocytes 0.9 10^3/uL (0.1-0.6); Absolute Neutrophils 5.2 10^3/uL (1.4-6.5); Hematocrit 29.6 % (37.0-47.0); Hemoglobin 10.1 g/dL (12.0-16.0); Mean Corp Hgb Conc. 34.1 g/dL (33.0-37.0); Mean Corpuscular Hgb 31.7 pg (27.0-31.0); Mean Corpuscular Volume 92.8 fL (81.0-99.0); Mean Platelet Volume 10.3 fL (7.4-10.4); Nucleated Red Blood Cells % 0 %; Platelet Count 104 10^3/uL (130-400); Red Blood Cell Count 3.19 10^6/uL (4.20-5.40); Red Cell Dist. Width 14.1 % (11.5-14.5); White Blood Cell Count 6.6 10^3/uL (4.8-10.8)
[2025-04-22 05:17] LABS: ALT (SGPT) 12 U/L (0-35); AST (SGOT) 19 U/L (14-36); Alkaline Phosphatase 78 U/L (38-126); Blood Urea Nitrogen 28 mg/dl (7-17); Calcium 8.4 mg/dl (8.4-10.2); Carbon Dioxide 20 mmol/L (22-30); Chloride 110 mmol/L (98-107); Estimated Creatinine Clearance 22 ml/min; Glucose 121 mg/dl (70-99); Potassium 3.2 mmol/L (3.5-5.1); Sodium 137 mmol/L (135-145); Total Bilirubin 1.3 mg/dl (0.2-1.3); Total Protein 5.4 g/dl (6.3-8.2); eGFR 33.31
[2025-04-22] MEDS: ROCEPHIN 1000 MG IV (05:39)
[2025-04-22] MEDS: NSS 1000 IV ×2 (05:40→20:14)
[2025-04-22] MEDS: STERILE WATER FOR INJECTION IV (07:24)
[2025-04-22] MEDS: THERAGRAN 1 TABLET PO (07:57)
[2025-04-22] MEDS: FEOSOL 325 MG PO (07:57)
[2025-04-22] MEDS: BETAPACE 40 MG PO ×2 (07:57→20:55)
[2025-04-22] MEDS: ELIQUIS 2.5 MG PO ×2 (08:01→20:15)
--- NOTE | 2025-04-22 09:33 | W.PN.HOSP.TC ---
Addendum entered and electronically signed by Monico Paige MD 04/22/25 14:06:
#Hypokalemia
Replete, recheck a.m. labs
Original Note:
Today's Communication/Plan
-
see bold
Assessment / Plan
Assessment / Plan
HPI: 89-year-old female past medical history of paroxysmal atrial fibrillation with pacemaker, SVT, hypertension, anemia, GI bleeding, severe anemia, colonic angiectasia, diverticulosis, hemorrhoids, spinal fusion/chronic back pain presenting with
urinary frequency 3 days ago. Patient has been having weakness and confusion. Went to see primary care physician was weak and confused and hypotensive. Urinalysis confirmed UTI.
She has been occasionally having diarrhea. Denies any abdominal pain or nausea or vomiting. Denies fevers or chills.
# Urinary tract infection
Continue IV Rocephin, follow-up on urine culture
# Acute kidney injury
Hold lisinopril
Continue IV fluids, no nephrotoxic drugs/NSAIDs
# Weakness
PT/OT rec HH, patient lives alone
#Constipation
Last bowel movement 5 days ago
Abdominal x-ray shows moderate fecal material
Give Dulcolax suppository, start senna with Colace twice a day
Paroxysmal atrial fibrillation with pacemaker
- Continue Eliquis
- Continue verapamil
- Continue sotalol
History of SVT
Essential hypertension
- Hold lisinopril
Chronic anemia
History of GI bleeding
Colonic angiectasia
Diverticulosis
Spinal fusion/chronic back pain
DVT prophylaxis�subcu heparin
DNR
Total time spent to see the patient on the floor, examine the patient, review data and lab results, discuss treatment plan with patient, nursing staff around 50 minutes.
Physical Exam
General: Elderly, no acute distress
HEENT: Normocephalic, Atraumatic, EOMI, MMM
Respiratory: Clear to Auscultation bilaterally
Cardiac: Normal S1/S2, Regular Rate and Rhythm
GI: Soft, Nontender, Nondistended, Normal Bowel Sounds
Extremities: No Clubbing, Cyanosis, or Edema
Neuro: Nonfocal/Grossly Intact
Psych: Intermittently anxious
Anticipated Discharge: 24 - 48 hours
Subjective/Interval History
-
Date of Service: April 22, 2025
Patient had fever and vomiting yesterday. She reports her weakness has improved. Denies dysuria, denies abdominal pain. No chest pain, no shortness of breath.
Objective Data
-
Labs:
Laboratory Results
04/22/25
04:34
WBC 6.6
Hgb 10.1 L
Hct 29.6 L
Plt Count 104 L
Sodium 137
Potassium 3.2 L
Chloride 110 H
Carbon Dioxide 20 L
BUN 28 H
Creatinine 1.5 H
Glucose 121 H
Calcium 8.4
Total Bilirubin 1.3
AST 19
ALT 12
Alkaline Phosphatase 78
Vital Signs:
Vital Signs
Temp Pulse Resp BP Pulse Ox
98.4 F 68 18 92/46 97
04/22/25 07:07 04/22/25 07:07 04/22/25 07:07 04/22/25 07:07 04/22/25 07:07
I&O
04/21/25 04/22/25 04/23/25
06:59 06:59 06:59
Intake Total 1000 / 1000
Output Total 400 / 400
Balance 600 / 600
[2025-04-22] MEDS: CALAN EXTENDED RELEASE 240 MG PO (10:50)
[2025-04-22] MEDS: SENOKOT-S 2 TABLET PO ×2 (13:04→20:15)
[2025-04-22] MEDS: DULCOLAX 10 MG RECTAL (13:04)
[2025-04-22] MEDS: ATIVAN 0.25 MG PO (13:34)
[2025-04-22] MEDS: KCL 40 MEQ PO (13:35)
[2025-04-22] MEDS: CALAN EXTENDED RELEASE 120 MG PO (17:31)
--- NOTE | 2025-04-22 18:16 | PTCARENOTE ---
Patient received to [facility] at 1600 awake and alert . Ambulated with slow gait to bed. Does not remember to use call light for assist, bed and chair alarm provided. Continent of urine, able to transfer with stand by asisist to bedside commode.
Appetite fair, states she eats small meals at home . Did receive tylenol for c/o back pain with some relief .
[2025-04-23] VITALS (7 sets, daily range): BP systolic 120–161; BP diastolic 57–85
[2025-04-23] MEDS: ROCEPHIN 1000 MG IV (05:01)
[2025-04-23] MEDS: STERILE WATER FOR INJECTION 10 ML IV (05:01)
[2025-04-23 07:56] LABS: Blood Urea Nitrogen 23 mg/dl (7-17); Calcium 8.8 mg/dl (8.4-10.2); Carbon Dioxide 17 mmol/L (22-30); Chloride 113 mmol/L (98-107); Estimated Creatinine Clearance 28 ml/min; Glucose 115 mg/dl (70-99); Magnesium 1.8 mg/dl (1.6-2.3); Potassium 3.7 mmol/L (3.5-5.1); Sodium 140 mmol/L (135-145); eGFR 43.54
[2025-04-23] MEDS: NSS 1000 IV (08:45)
[2025-04-23] MEDS: TYLENOL 650 MG PO (08:45)
[2025-04-23] MEDS: BETAPACE 40 MG PO ×2 (08:52→20:33)
[2025-04-23] MEDS: SENOKOT-S 2 TABLET PO ×2 (08:53→20:34)
[2025-04-23] MEDS: CALAN EXTENDED RELEASE 240 MG PO (08:53)
[2025-04-23] MEDS: THERAGRAN 1 TABLET PO (08:54)
[2025-04-23] MEDS: ELIQUIS 2.5 MG PO ×2 (08:54→20:35)
--- NOTE | 2025-04-23 09:53 | W.PN.HOSP.TC ---
Today's Communication/Plan
-
Probable discharge tomorrow with continued clinical improvement
Assessment / Plan
Assessment / Plan
HPI: 89-year-old female past medical history of paroxysmal atrial fibrillation with pacemaker, SVT, hypertension, anemia, GI bleeding, severe anemia, colonic angiectasia, diverticulosis, hemorrhoids, spinal fusion/chronic back pain presenting with
urinary frequency 3 days ago. Patient has been having weakness and confusion. Went to see primary care physician was weak and confused and hypotensive. Urinalysis confirmed UTI.
She has been occasionally having diarrhea. Denies any abdominal pain or nausea or vomiting. Denies fevers or chills.
# Urinary tract infection
Fever resolved
Continue IV Rocephin, urine cultures growing gram-negative bacilli, follow-up on sensitivities
Blood cultures negative to date
# Acute kidney injury
# Non-anion gap metabolic acidosis
Hold lisinopril
Cap IV fluids after current bag, trend Cr, no nephrotoxic drugs/NSAIDs
Start sodium bicarb
# Weakness
PT/OT rec HH, patient lives alone
#Constipation
Last bowel movement 5 days ago
Abdominal x-ray shows moderate fecal material
Resolved status post Dulcolax suppository
Continue senna with Colace twice a day
#Hypokalemia
Repleted and resolved
Paroxysmal atrial fibrillation with pacemaker
- Continue Eliquis
- Continue verapamil
- Continue sotalol
History of SVT
Essential hypertension
- Hold lisinopril
Chronic anemia
History of GI bleeding
Colonic angiectasia
Diverticulosis
Spinal fusion/chronic back pain
DVT prophylaxis�subcu heparin
DNR
Updated daughter on phone 04/23
Total time spent to see the patient on the floor, examine the patient, review data and lab results, discuss treatment plan with patient, nursing staff around 40 minutes.
Physical Exam
General: Elderly, no acute distress
HEENT: Normocephalic, Atraumatic, EOMI, MMM
Respiratory: Clear to Auscultation bilaterally
Cardiac: Normal S1/S2, Regular Rate and Rhythm
GI: Soft, Nontender, Nondistended, Normal Bowel Sounds
Extremities: No Clubbing, Cyanosis, or Edema
Neuro: Nonfocal/Grossly Intact
Psych: Intermittently anxious
Anticipated Discharge: Within 24 hours
Subjective/Interval History
-
Date of Service: April 22, 2025
Weakness improved. No dysuria. No abdominal pain. No chest pain, shortness of breath. No fever, no vomiting.
Objective Data
-
Labs:
Laboratory Results
04/22/25
04:34
WBC 6.6
Hgb 10.1 L
Hct 29.6 L
Plt Count 104 L
Sodium 137
Potassium 3.2 L
Chloride 110 H
Carbon Dioxide 20 L
BUN 28 H
Creatinine 1.5 H
Glucose 121 H
Calcium 8.4
Total Bilirubin 1.3
AST 19
ALT 12
Alkaline Phosphatase 78
Vital Signs:
Vital Signs
Temp Pulse Resp BP Pulse Ox
98.4 F 68 18 92/46 97
04/22/25 07:07 04/22/25 07:07 04/22/25 07:07 04/22/25 07:07 04/22/25 07:07
I&O
04/21/25 04/22/25 04/23/25
06:59 06:59 06:59
Intake Total 1000 / 1000
Output Total 400 / 400
Balance 600 / 600
[2025-04-23] MEDS: SODIUM BICARBONATE 1300 MG PO ×3 (11:37→21:29)
--- NOTE | 2025-04-23 15:14 | CM ---
CM reviewed chart, patient seen bedside, initial assessment completed. Patient resides at [facility], drives, does shopping. Patient denies use of DME in the home for ambulation, reports VN in the past, unsure agency name, denies [facility] or
SNF stays. Patient confirms PCP Jose Gomez, pharmacy [facility] CM discussed PT recommendation of VN, patient declining at this time, will discuss with patients daughter. Patient reports likely discharge tomorrow. CM will
continue to follow for all discharge planning needs.
Plan; return home to [facility], patient declining VN
[2025-04-23] MEDS: CALAN EXTENDED RELEASE 120 MG PO (16:58)
[2025-04-24 00:24] VITALS: BP 133/68
[2025-04-24 03:21] VITALS: BP 128/64
[2025-04-24] MEDS: ROCEPHIN 1000 MG IV (05:02)
[2025-04-24] MEDS: STERILE WATER FOR INJECTION 10 ML IV (05:02)
[2025-04-24 07:00] VITALS: BP 162/84
[2025-04-24] MEDS: CALAN EXTENDED RELEASE 240 MG PO (07:56)
[2025-04-24] MEDS: SENOKOT-S 2 TABLET PO (07:56)
[2025-04-24] MEDS: SODIUM BICARBONATE 1300 MG PO (07:57)
[2025-04-24] MEDS: THERAGRAN 1 TABLET PO (07:57)
[2025-04-24] MEDS: BETAPACE 40 MG PO (07:57)
[2025-04-24] MEDS: ELIQUIS 2.5 MG PO (07:58)
[2025-04-24] MEDS: FEOSOL 325 MG PO (07:58)
[2025-04-24 08:27] LABS: Blood Urea Nitrogen 15 mg/dl (7-17); Calcium 9.1 mg/dl (8.4-10.2); Carbon Dioxide 22 mmol/L (22-30); Chloride 112 mmol/L (98-107); Estimated Creatinine Clearance 34 ml/min; Glucose 105 mg/dl (70-99); Potassium 3.5 mmol/L (3.5-5.1); Sodium 142 mmol/L (135-145); eGFR 54.19
--- NOTE | 2025-04-24 09:42 | W.PN.HOSP.TC ---
Today's Communication/Plan
-
Discharge home with home PT
Assessment / Plan
Assessment / Plan
HPI: 89-year-old female past medical history of paroxysmal atrial fibrillation with pacemaker, SVT, hypertension, anemia, GI bleeding, severe anemia, colonic angiectasia, diverticulosis, hemorrhoids, spinal fusion/chronic back pain presenting with
urinary frequency 3 days ago. Patient has been having weakness and confusion. Went to see primary care physician was weak and confused and hypotensive. Urinalysis confirmed UTI.
She has been occasionally having diarrhea. Denies any abdominal pain or nausea or vomiting. Denies fevers or chills.
# Urinary tract infection
Fever resolved
Urine cultures grew out Klebsiella, sensitive to IV Rocephin
She has received 3 days of IV Rocephin, she does not need any more antibiotic
Medically stable for discharge home with home PT today
# Acute kidney injury
# Non-anion gap metabolic acidosis
Resolved with IV fluids and sodium bicarb
Discontinue sodium bicarb
# Weakness
PT/OT rec HH, patient lives alone
#Constipation
Last bowel movement 5 days ago
Abdominal x-ray shows moderate fecal material
Resolved status post laxatives
#Hypokalemia
Repleted and resolved
Paroxysmal atrial fibrillation with pacemaker
- Continue Eliquis
- Continue verapamil
- Continue sotalol
History of SVT
Essential hypertension
- Blood pressure trending up, resume lisinopril upon discharge
Chronic anemia
History of GI bleeding
Colonic angiectasia
Diverticulosis
Spinal fusion/chronic back pain
DVT prophylaxis�subcu heparin
DNR
Updated daughter on phone 04/23
Physical Exam
General: Elderly, no acute distress
HEENT: Normocephalic, Atraumatic, EOMI, MMM
Respiratory: Clear to Auscultation bilaterally
Cardiac: Normal S1/S2, Regular Rate and Rhythm
GI: Soft, Nontender, Nondistended, Normal Bowel Sounds
Extremities: No Clubbing, Cyanosis, or Edema
Neuro: Nonfocal/Grossly Intact
Psych: Intermittently anxious
Anticipated Discharge: Today
Subjective/Interval History
-
Date of Service: April 24, 2025
Patient reports weakness resolved. No abdominal pain, no dysuria. No chest pain, no shortness of breath. No fever, no vomiting. She is eager for discharge today.
Objective Data
-
Labs:
Laboratory Results
04/24/25
06:36
Sodium 142
Potassium 3.5
Chloride 112 H
Carbon Dioxide 22
BUN 15
Creatinine 1.0
Glucose 105 H
Calcium 9.1
Vital Signs:
Vital Signs
Temp Pulse Resp BP Pulse Ox
97.8 F 76 20 162/84 95
04/24/25 07:00 04/24/25 07:00 04/24/25 07:00 04/24/25 07:00 04/24/25 07:00
I&O
04/23/25 04/24/25 04/25/25
06:59 06:59 06:59
Intake Total 1380 / 1380 2760 / 2760
Output Total 1400 / 1400
Balance 1380 / 1380 1360 / 1360
--- NOTE | 2025-04-24 11:24 | CM ---
CM reviewed chart, reviewed with Hospitalist, for discharge today. CM spoke with patients daughter, Gabrielle, will provide transportation home, around 2:00 p.m. Daughter aware patient declining VN, will leave it up to patient to decide. Patient seen
bedside, offered VN, patient continue to decline. IMM verbally reviewed, provided with copy, placed on chart. CM will continue to follow for all discharge planning needs.
Plan; return to [place]
[2025-04-24 11:39] VITALS: BP 160/85
== END 2025-04-24 15:05 | disposition home or self-care (01) | DRG 683 ==
LOC: 4 WEST ACU 20:20
PROVIDERS: Emergency Medicine; Nurse Practitioner; ADMITTING PHYSICIAN Hospitalist; ATTENDING PHYSICIAN Family Medicine; EMERGENCY PHYSICIAN Emergency Medicine; FAMILY PHYSICIAN Physician Assistant Medical
DX: N17.9 Acute kidney failure, unspecified (principal); E87.20 Acidosis, unspecified; N39.0 Urinary tract infection, site not specified; I47.10 Supraventricular tachycardia, unspecified; I95.9 Hypotension, unspecified; D64.9 Anemia, unspecified; I10 Essential (primary) hypertension; I48.0 Paroxysmal atrial fibrillation; E86.0 Dehydration; M54.9 Dorsalgia, unspecified; G89.29 Other chronic pain; K59.00 Constipation, unspecified; E87.6 Hypokalemia; Z60.2 Problems related to living alone; Z66 Do not resuscitate; Z90.710 Acquired absence of both cervix and uterus; Z95.0 Presence of cardiac pacemaker; Z98.1 Arthrodesis status; Z87.19 Personal history of other diseases of the digestive system; Z88.6 Allergy status to analgesic agent; Z88.5 Allergy status to narcotic agent; Z88.8 Allergy status to other drugs, medicaments and biological substances; Z79.01 Long term (current) use of anticoagulants
CPT/HCPCS: 74018; 80048; 80053; 81003; 81015; 83735; 85025; 87040; 87077; 87086; 87186; 97162; 97167